=== PATIENT | female | born 1950 | race Caucasian/White ===

== ENCOUNTER 2023-01-04 17:39 | Emergency (ER) | payer MEDICARE, OTHER ==
[2023-01-04] MEDS ORDERED: METOCLOPRAMIDE 5 MG/ML 2 ML VIAL IVP STA (18:48)
[2023-01-04] MEDS ORDERED: SODIUM CHLORIDE 0.9% 1,000 ML IV STA (18:48)
[2023-01-04 19:10] LABS: Basophils % (A) 0 %; Eosinophils # (A) 0.1 k/uL (0-0.7); Eosinophils % (A) 0 %; HCT 50.4 % (34.0-46.0); HGB 17.4 gm/dL (11.4-16.0); Lymphocytes # (A) 2.9 k/uL (1.0-4.8); Lymphocytes % (A) 22 %; MCH 30.8 pg (25.0-35.0); MCHC 34.5 g/dL (31.0-37.0); MCV 89.4 fL (80.0-100.0); Mean Platelet Volume 7.9; Monocytes # (A) 0.8 k/uL (0-1.0); Monocytes % (A) 6 %; Neutrophils # (A) 9.4 k/uL (1.3-7.7); Neutrophils % (A) 71 %; Platelet Count 302 k/uL (150-450); RBC 5.64 m/uL (3.80-5.40); WBC 13.2 k/uL (3.8-10.6)
[2023-01-04 19:37] LABS: Appearance,Urine Clear (Clear); Bilirubin,Urine Negative (Negative); Blood,Urine Negative (Negative); Color,Urine Yellow; Glucose,Urine (UA) 4+ (Negative); Leukocyte Esterase,Urine Negative (Negative); Nitrite,Urine Negative (Negative); PH, Urine 5.5 (5.0-8.0); Protein,Urine Trace (Negative); Specific Gravity,Urine 1.027 (1.001-1.035); Urobilinogen,Urine <2.0 mg/dL (<2.0)
[2023-01-04 19:49] LABS: Ketones,Urine 4+ (Negative)
[2023-01-04 20:09] LABS: ALT 48 U/L (4-34); AST 55 U/L (14-36); African American GFR (CKD) 76 (>60 ml/min/1.73 sqM); Albumin 4.4 g/dL (3.5-5.0); Alkaline Phosphatase 110 U/L (38-126); Amylase 61 U/L (30-110); Anion Gap 26 mmol/L; Blood Urea Nitrogen 29 mg/dL (7-17); Calcium 9.8 mg/dL (8.4-10.2); Carbon Dioxide 12 mmol/L (22-30); Chloride 95 mmol/L (98-107); Glucose 216 mg/dL (74-99); Lipase 202 U/L (23-300); Non-African American GFR(CKD) 66 (>60 ml/min/1.73 sqM); Potassium 3.6 mmol/L (3.5-5.1); Sodium 133 mmol/L (137-145); Total Bilirubin 2.2 mg/dL (0.2-1.3); Total Protein 7.5 g/dL (6.3-8.2)
--- NOTE | 2023-01-04 22:06 | US ---
EXAMINATION TYPE: US abdomen limited DATE OF EXAM: 01/04/2023 COMPARISON: NONE CLINICAL INDICATION: Female, 72 years old with history of elevated bilirubin, vomiting; Elevated bili handy, vomiting, abdominal pain. Limited history. TECHNIQUE: Multiple sonographic images of the right upper quadrant are obtained. FINDINGS: EXAM MEASUREMENTS: Liver Length: 14.2 cm Gallbladder Wall: Obscured CBD: Obscured Right Kidney: 9.7 x 6.0 x 6.8 cm ABALONE FISHERMAN NOTES: Exam is extremely limited due to great amount of overlying bowel gas. Pancreas: Not well seen. Liver: Appears coarse with increased echogenicity. Limited. IVC was obscured. Gallbladder: Unable to visualize. Evidence for sonographic Mcdonald's sign: Yes CBD: Obscured Right Kidney: Hypoechoic area seen at the lower pole: 1.1 x 0.8 x 0.9 cm. IMPRESSION: 1. Per treatment counselor there is a positive sonographic Mcdonald's sign however the gallbladder is not visu alized. Correlate for history of cholecystectomy. Consider further evaluation with cross-sectional im aging with IV contrast. 2. Hepatic steatosis.
--- NOTE | 2023-01-04 23:16 | CT ---
EXAMINATION TYPE: CT abdomen pelvis w con DATE OF EXAM: 01/04/2023 HISTORY: Abdominal pain, acute, nonlocalized CT DLP: 947.2mGycm Automated Exposure Control for Dose Reduction was Utilized. CONTRAST: CT scan of the abdomen and pelvis is performed without oral and with IV Contrast, patient injected wi th 100 ml mL of Isovue 300. COMPARISON: Ultrasound abdomen earlier today. FINDINGS: LUNG BASES: Coronary artery calcification in the LAD distribution. LIVER/GB: Liver is heterogeneously hypodense consistent with diffuse fatty infiltration and/or underl chemo hepatocellular disease. Contracted gallbladder has internal air. No biliary dilatation. No surro unding fluid or fat stranding. PANCREAS: No significant abnormality is seen. SPLEEN: No significant abnormality is seen. ADRENALS: No significant abnormality is seen. KIDNEYS: Symmetric cortical medullary uptake and excretion without hydronephrosis seen bilaterally. BOWEL: Sigmoid colonic diverticula. No CT evidence for acute diverticulitis. No suspicious small or l arge bowel dilatation. Stomach poorly contracted and suboptimally evaluated. Severe wall thickening i n the antrum extending into the proximal duodenum. No free air. No well-formed fluid collection or ab scess seen. UTERUS/ADNEXA: Uterus surgically absent or markedly atrophic. LYMPH NODES: No greater than 1cm abdominal or pelvic lymph nodes are appreciated. OSSEOUS STRUCTURES: Facet arthropathy lower lumbar levels. Mild height loss involving T12 and L1 vert ebra presumed chronic. OTHER: No significant additional abnormality is seen. IMPRESSION: 1. Contracted gallbladder with pneumobilia. Correlate for recent instrumentation. No convincing CT ev idence for acute cholecystitis. No abnormal biliary dilatation. Possible focal inflammation involving the pylorus and proximal duodenum. Correlate for peptic ulcer disease/duodenitis. Consider follow-up endoscopy.
[2023-01-04] MEDS ORDERED: KETOROLAC 15 MG/ML 1 ML VIAL IVP STA (23:37)
[2023-01-05 00:04] VITALS: TEMP 98.2
[2023-01-05] MEDS ORDERED: PIPERACILLIN-TAZOBACTAM 3.375 GM in SODIUM CHLORIDE 0.9% 100 ML IVPB STA (01:01)
--- NOTE | 2023-01-05 01:09 | ED ---
Nausea/Vomiting/Diarrhea HPI - General Chief complaint: Nausea/Vomiting/Diarrhea Stated complaint: N/V/D, Dizziness Time Seen by Provider: 01/04/23 18:08 Source: patient, family Mode of arrival: wheelchair - History of Present Illness Initial comments: 72-year-old female with cognitive delay presenting with chief complaint of nausea and vomiting. Symptoms have been ongoing since . Patient was seen at a walk-in clinic and prescribed Zofran, she was also told to discontinue metformin at that time. Family states that she has not been complaining of abdominal pain. No fevers or chills. Patient did initially have diarrhea. Surgical history includes hysterectomy - Related Data Allergies Allergy/AdvReac Type Severity Reaction Status Date / Time No Known Allergies Allergy Verified 01/04/23 17:55 Review of Systems ROS Statement: Those systems with pertinent positive or pertinent negative responses have been documented in the HPI. ROS Other: All systems not noted in ROS Statement are negative. Past Medical History Past Medical History: Diabetes Mellitus, Hypertension Additional Past Medical History / Comment(s): cognitive delay History of Any Multi-Drug Resistant Organisms: None Reported Past Surgical History: Hysterectomy Past Psychological History: No Psychological Hx Reported Smoking Status: Never smoker Past Alcohol Use History: None Reported Past Drug Use History: None Reported General Exam Limitations: altered mental status General appearance: alert, in no apparent distress Head exam: Present: atraumatic, normocephalic, normal inspection Eye exam: Present: normal appearance, EOMI. Absent: scleral icterus, periorbital swelling Neck exam: Present: normal inspection, full ROM Respiratory exam: Present: normal lung sounds bilaterally. Absent: respiratory distress, wheezes, rales, rhonchi, stridor Cardiovascular Exam: Present: regular rate, normal rhythm, normal heart sounds. Absent: systolic murmur, diastolic murmur, rubs, gallop, clicks GI/Abdominal exam: Present: soft, tenderness, guarding. Absent: distended, rebound, rigid Neurological exam: Present: alert, altered (Baseline) Psychiatric exam: Present: normal affect, normal mood Skin exam: Present: warm, dry, intact, normal color. Absent: rash Course Vital Signs 01/04/23 01/04/23 01/04/23 17:47 18:08 19:07 Temperature 97.9 F 98.0 F Pulse Rate 98 98 Respiratory 18 18 17 Rate Blood Pressure 136/78 132/79 138/77 O2 Sat by Pulse 97 97 98 Oximetry 01/04/23 01/04/23 01/04/23 19:27 20:16 21:08 Temperature 98.7 F 98.7 F Pulse Rate 95 95 87 Respiratory 17 17 18 Rate Blood Pressure 138/77 126/72 120/69 O2 Sat by Pulse 95 92 L 94 L Oximetry 01/04/23 01/04/23 01/05/23 22:00 23:06 00:03 Temperature 98.0 F 98.2 F Pulse Rate 88 85 78 Respiratory 18 17 18 Rate Blood Pressure 113/69 128/67 112/62 O2 Sat by Pulse 93 L 95 94 L Oximetry 01/05/23 01:00 Temperature Pulse Rate 84 Respiratory 16 Rate Blood Pressure 126/76 O2 Sat by Pulse 95 Oximetry Medical Decision Making - Medical Decision Making Was pt. sent in by a medical professional or institution (, PA, VOCATIONAL EDUCATION TEACHER, urgent care, hospital, or prison...) When possible be specific @ -No Did you speak to anyone other than the patient for history (EMS, parent, family, police, friend...)? What history was obtained from this source @ -History obtained from the patient's brother and [id number] Did you review nursing and triage notes (agree or disagree)? Why? @ -I reviewed and agree with nursing and triage notes Were old charts reviewed (outside hosp., previous admission, EMS record, old EKG, old radiological studies, urgent care reports/EKG's, prison records)? Report findings @ -No old charts were reviewed Differential Diagnosis (chest pain, altered mental status, abdominal pain women, abdominal pain men, vaginal bleeding, weakness, fever, dyspnea, syncope, headache, dizziness, GI bleed, back pain, seizure, CVA, palpatations, mental health, musculoskeletal)? @ -MDM Differential Abdominal Pain Women: Appendicitis, Cholecystitis, diverticulosis, ischemic bowel, pancreatitis, hepat itis, UTI, gastroenteritis, AAA, incarcerated hernia, bowel obstruction, constipation, inflammatory bowel, hepatitis, peptic ulcer disease, splenic infarction, perforated viscus, vulvitis, ovarian torsion, PID, kidney stone, placenta abruption... This is not meant to be an all-inclusive list EKG interpreted by me (3pts min.). @ -As above X-rays interpreted by me (1pt min.). @ -None done CT interpreted by me (1pt min.). @ -CT shows contracted gallbladder with pneumobilia. No convincing CT evidence for acute cholecystitis. No abnormal biliary dilation. Possible focal inflammation involving the pylorus and proximal duodenum. Consider follow-up endoscopy U/S interpreted by me (1pt. min.). @ -Hepatic steatosis. Gallbladder not visualized What testing was considered but not performed or refused? (CT, X-rays, U/S, labs)? Why? @ -None What meds were considered but not given or refused? Why? @ -None Did you discuss the management of the patient with other professionals (professionals i.e. , PA, VOCATIONAL EDUCATION TEACHER, lab, RT, psych nurse, social media project manager, chocolate maker, teacher, staff weapons officer, case filler)? Give summary @ -I spoke with general surgeon stonecutter apprentice hand Dr. Suarez, she states that she would require GI on-call during this patient's stay in the event of a potential need for ERCP, recommending transfer for GI services I spoke with Dr. Tafoya from [facility] who accepted transfer Was smoking cessation discussed for >3mins.? @ -No Was critical care preformed (if so, how long)? @ -No Were there social determinants of health that impacted care today? How? (Homelessness, low income, unemployed, alcoholism, drug addiction, transp ortation, low edu. Level, literacy, decrease access to med. care, retirement, rehab)? @ -No Was there de-escalation of care discussed even if they declined (Discuss DNR or withdrawal of care, Hospice)? DNR status @ -No What co-morbidities impacted this encounter? (DM, HTN, Smoking, COPD, CAD, Cancer, CVA, ARF, Chemo, Hep., AIDS, mental health diagnosis, sleep apnea, morbid obesity)? @ -Diabetes, hypertension Was patient admitted / discharged? Hospital course, mention meds given and route , prescriptions, significant lab abnormalities, going to OR and other pertinent info. @ -72-year-old female presenting with chief complaint of nausea and vomiting ongoing since . On physical examination there is diffuse abdominal tenderness. Patient has WBC 13.2, CBC shows evidence of hemoconcentration. Anion gap 26. Carbon dioxide 12. Glucose 216. Bilirubin 2.2 AST 55 ALT 48. Urine shows 4+ glucose and 4+ ketones. CT shows evidence of pneumobilia. Spoke with general surgeon on-call who states that the patient may require ERCP and advises transfer for GI services. I spoke with Dr. Tafoya from [facility], accepted transfer. Patient family are agreeable with this plan. I discussed this case with my attending Dr. Martinez. Undiagnosed new problem with uncertain prognosis? @ -No Drug Therapy requiring intensive monitoring for toxicity (Heparin, Nitro, Insulin, Cardizem)? @ -No Were any procedures done? @ -No Diagnosis/symptom? @ -Pneumobilia Acute, or Chronic, or Acute on Chronic? @ -Acute Uncomplicated (without systemic symptoms) or Complicated (systemic symptoms)? @ -Complicated Side effects of treatment? @ -No Exacerbation, Progression, or Severe Exacerbation? @ -No Poses a threat to life or bodily function? How? (Chest pain, USA, NM, pneumonia, PE, COPD, DKA, ARF, appy, cholecystitis, CVA, Diverticulitis, Homicidal, Suicidal, threat to staff... and all critical care pts) @ -Potential - Lab Data Result diagrams: 01/04/23 18:59 01/04/23 19:37 Lab Results 01/04/23 01/04/23 01/04/23 Range/Units 18:59 18:59 19:37 WBC 13.2 H (3.8-10.6) k/uL RBC 5.64 H (3.80-5.40) m/uL Hgb 17.4 H (11.4-16.0) gm/dL Hct 50.4 H (34.0-46.0) % MCV 89.4 (80.0-100.0) fL MCH 30.8 (25.0-35.0) pg MCHC 34.5 (31.0-37.0) g/dL RDW 13.0 (11.5-15.5) % Plt Count 302 (150-450) k/uL MPV 7.9 Neutrophils % 71 % Lymphocytes % 22 % Monocytes % 6 % Eosinophils % 0 % Basophils % 0 % Neutrophils # 9.4 H (1.3-7.7) k/uL Lymphocytes # 2.9 (1.0-4.8) k/uL Monocytes # 0.8 (0-1.0) k/uL Eosinophils # 0.1 (0-0.7) k/uL Basophils # 0.0 (0-0.2) k/uL Sodium 133 L (137-145) mmol/L Potassium 3.6 (3.5-5.1) mmol/L Chloride 95 L (98-107) mmol/L Carbon Dioxide 12 L (22-30) mmol/L Anion Gap 26 mmol/L BUN 29 H (7-17) mg/dL Creatinine 0.87 (0.52-1.04) mg/dL Est GFR (CKD-EPI)AfAm 76 (>60 ml/min/1.73 sqM) Est GFR (CKD-EPI)NonAf 66 (>60 ml/min/1.73 sqM) Glucose 216 H (74-99) mg/dL Calcium 9.8 (8.4-10.2) mg/dL Total Bilirubin 2.2 H (0.2-1.3) mg/dL AST 55 H (14-36) U/L ALT 48 H (4-34) U/L Alkaline Phosphatase 110 (38-126) U/L Total Protein 7.5 (6.3-8.2) g/dL Albumin 4.4 (3.5-5.0) g/dL Amylase 61 (30-110) U/L Lipase 202 (23-300) U/L Urine Color Yellow Urine Appearance Clear (Clear) Urine pH 5.5 (5.0-8.0) Ur Specific [place] 1.027 (1.001-1.035) Urine Protein Trace H (Negative) Urine Glucose (UA) 4+ H (Negative) Urine Ketones 4+ H (Negative) Urine Blood Negative (Negative) Urine Nitrite Negative (Negative) Urine Bilirubin Negative (Negative) Urine Urobilinogen <2.0 (<2.0) mg/dL Ur Leukocyte Esterase Negative (Negative) Disposition Clinical Impression: Pneumobilia Disposition: OTHER INSTITUTION NOT DEFINED Condition: Fair Referrals: Isak Narvaez MD [Primary Care Provider] - 1-2 days Time of Disposition: 01:09 - Out of Hospital Transfer - Req. Specs Out of Hospital Transfer - Requested Specifics: Other Emergency Center ([facility]
[2023-01-05 01:20] VITALS: BP 126/76; PULSE 84; RESP 16
== END 2023-01-05 01:39 | disposition other institution (70) ==
LOC: EC 17:39
DX: K83.8 Other specified diseases of biliary tract (principal); K76.0 Fatty (change of) liver, not elsewhere classified; E11.9 Type 2 diabetes mellitus without complications; I10 Essential (primary) hypertension
CPT/HCPCS: 36415; 80053; 82150; 83690; 85025; 81003; 76705; 74177; 99285; 96365; 96375 ×2; 96361; J2543; J2765; J1885; Q9967

== ENCOUNTER 2024-03-18 17:40 | Inpatient (IN) | payer MEDICARE, OTHER ==
[2024-03-18 18:35] LABS: Appearance,Urine Clear (Clear); Bilirubin,Urine 1+ (Negative); Blood,Urine Negative (Negative); Color,Urine Light Yellow; Glucose,Urine (UA) 4+ (Negative); Leukocyte Esterase,Urine Moderate (Negative); Mucus,Urine Rare /hpf; Nitrite,Urine Negative (Negative); Protein,Urine Trace (Negative); RBC,Urine 1 /hpf (0-5); Specific Gravity,Urine 1.027 (1.001-1.035); Squamous Epithelial Cell,Urine 1 /hpf (0-4); Urobilinogen,Urine <2.0 mg/dL (<2.0); WBC,Urine 35 /hpf (0-5)
[2024-03-18 18:37] LABS: Ketones,Urine 3+ (Negative)
--- NOTE | 2024-03-18 19:43 | ED ---
Nausea/Vomiting/Diarrhea HPI - General Source: patient, RN notes reviewed Mode of arrival: ambulatory Limitations: no limitations - History of Present Illness MD complaint: nausea, vomiting <Harriet Thomas - Last Filed: 03/18/24 19:41> - General Source: RN notes reviewed, old records reviewed Mode of arrival: ambulatory - History of Present Illness MD complaint: nausea, vomiting, diarrhea, abdominal pain -: days(s) Description of Vomiting: watery Associated Abdominal Pain: No Location: diffuse Severity: mild Consistency: constant Improves with: none Worsens with: none Context: other (0) Associated Symptoms: loss of appetite, malaise, nausea/vomiting, weakness <Hardeep Olivas - Last Filed: 04/06/24 14:11> - General Chief complaint: Nausea/Vomiting/Diarrhea Stated complaint: vomiting Time Seen by Provider: 03/18/24 19:35 - History of Present Illness Initial comments: Quick Note: This is a 73-year-old female who presents to the emergency department for nausea and vomiting. Symptoms started about 3 days ago. Denies any abdominal pain, diarrhea, or constipation. She has also not had any fevers or chills. Family is concerned that she has been unable to take her medications. (Harriet Thomas) This is a 73-year-old presenting for nausea vomiting significant nausea vomiting history of type I diabetic unable to take medications at home mental status has been diminishing (Hardeep Olivas) - Related Data Home Medications Medication Instructions Recorded Confirmed Atorvastatin [Lipitor] 20 mg PO DAILY 03/19/24 04/02/24 Insulin Glargine,Hum.rec.anlog 16 units SQ HS 03/19/24 04/02/24 [Lantus Solostar Pen] Oxybutynin ER [Ditropan XL] 10 mg PO DAILY 03/19/24 04/02/24 metFORMIN HCL 500 mg PO BID 03/19/24 04/02/24 Previous Rx's Medication Instructions Recorded Acetaminophen Tab [Tylenol] 650 mg PO Q6HR PRN tab 03/22/24 cefUROXime axetiL [Ceftin] 500 mg PO BID 3 Days #6 tab 04/04/24 Allergies Allergy/AdvReac Type Severity Reaction Status Date / Time No Known Allergies Allergy Verified 04/02/24 11:00 Review of Systems ROS Other: All systems not noted in ROS Statement are negative. <Harriet Thomas - Last Filed: 03/18/24 19:41> ROS Other: All systems not noted in ROS Statement are negative. <Hardeep Olivas - Last Filed: 04/06/24 14:11> ROS Statement: Those systems with pertinent positive or pertinent negative responses have been documented in the HPI. Past Medical History Past Medical History: Diabetes Mellitus, Hypertension Additional Past Medical History / Comment(s): cognitive delay History of Any Multi-Drug Resistant Organisms: None Reported Past Surgical History: Hysterectomy Past Psychological History: No Psychological Hx Reported Smoking Status: Never smoker Past Alcohol Use History: None Reported Past Drug Use History: None Reported <Harriet Thomas - Last Filed: 03/18/24 19:41> General Exam Limitations: no limitations <Harriet Thomas - Last Filed: 03/18/24 19:41> General appearance: alert, in no apparent distress Head exam: Present: atraumatic, normocephalic, normal inspection Eye exam: Present: normal appearance, PERRL, EOMI. Absent: scleral icterus, conjunctival injection, periorbital swelling ENT exam: Present: normal exam, mucous membranes moist Neck exam: Present: normal inspection. Absent: tenderness, meningismus, lymphadenopathy Respiratory exam: Present: normal lung sounds bilaterally. Absent: respiratory distress, wheezes, rales, rhonchi, stridor Cardiovascular Exam: Present: regular rate, normal rhythm, normal heart sounds. Absent: systolic murmur, diastolic murmur, rubs, gallop, clicks GI/Abdominal exam: Present: soft, normal bowel sounds. Absent: distended, tenderness, guarding, rebound, rigid Extremities exam: Present: normal inspection, full ROM, normal capillary refill. Absent: tenderness, pedal edema, joint swelling, calf tenderness Back exam: Present: normal inspection Neurological exam: Present: alert, oriented X3, CN II-XII intact Psychiatric exam: Present: normal affect, normal mood Skin exam: Present: warm, dry, intact, normal color. Absent: rash <Hardeep Olivas - Last Filed: 04/06/24 14:11> - General Exam Comments Initial Comments: Visual Physical Exam Vital signs reviewed General: Well-appearing, nontoxic, no acute distress. Head: Normocephalic, atraumatic Eyes: PERRLA, EOMI ENT: Airway patent Chest: Nonlabored breathing Skin: No visual rash, normal skin tone Neuro: Alert and oriented 3 Musculoskeletal: No gross abnormalities (Harriet Thomas) Course <Hardeep Olivas - Last Filed: 04/06/24 14:11> Vital Signs 03/18/24 03/19/24 03/19/24 17:50 01:51 06:20 Temperature 98.3 F Pulse Rate 92 81 77 Respiratory 18 18 17 Rate Blood Pressure 155/90 138/67 131/67 O2 Sat by Pulse 98 96 95 Oximetry 03/19/24 03/19/24 03/19/24 07:42 10:46 13:56 Temperature Pulse Rate 80 84 72 Respiratory 18 18 16 Rate Blood Pressure 135/59 126/76 126/73 O2 Sat by Pulse 97 98 95 Oximetry 03/19/24 03/19/24 03/19/24 15:51 18:00 19:46 Temperature 97.7 F 97.8 F Pulse Rate 66 71 68 Respiratory 16 18 16 Rate Blood Pressure 137/70 127/72 129/71 O2 Sat by Pulse 99 97 91 L Oximetry 03/19/24 03/19/24 20:55 22:22 Temperature Pulse Rate 59 L 69 Respiratory 16 16 Rate Blood Pressure 114/70 115/61 O2 Sat by Pulse 98 97 Oximetry - Reevaluation(s) Reevaluation #1: 03/18/24 22:48 Medical records reviewed (Hardeep Olivas) Reevaluation #2: 03/18/24 22:48 Patient symptoms unchanged (Hardeep Olivas) Reevaluation #3: 03/18/24 22:49 Patient informed of results questions answered (Hardeep Olivas) Reevaluation #4: Was pt. sent in by a medical professional or institution (, PA, VARITYPE OPERATOR, urgent care, hospital, or jail...) When possible be specific @ -no Did you speak to anyone other than the patient for history (EMS, parent, family, police, friend...)? What history was obtained from this source @ -no Did you review nursing and triage notes (agree or disagree)? Why? @ -agree Are old charts reviewed (outside hosp., previous admission, EMS record, old EKG, old radiological studies, urgent care reports/EKG's, jail records)? Report findings @ -yes Differential Diagnosis (chest pain, altered mental status, abdominal pain women, abdominal pain men, vaginal bleeding, weakness, fever, dyspnea, syncope, headache, dizziness, GI bleed, back pain, seizure, CVA, palpatations, mental health, musculoskeletal)? @ -prior EKG interpreted by me (3pts min.). @ -yes X-rays interpreted by me (1pt min.). @ -no CT interpreted by me (1pt min.). @ -yes negative for acute disease U/S interpreted by me (1pt. min.). @ -no What testing was considered but not performed or refused? (CT, X-rays, U/S, labs)? Why? @ -none What meds were considered but not given or refused? Why? @ -none Did you discuss the management of the patient with other professionals (professionals i.e. , PA, VARITYPE OPERATOR, lab, RT, psych nurse, high school social studies teacher, monotype mechanic, teacher, adult probation officer, case managers)? Give summary @ -no Was smoking cessation discussed for >3mins.? @ -no Was critical care preformed (if so, how long)? @ -yes31 Were there social determinants of health that impacted care today? How? (Homelessness, low income, unemployed, alcoholism, drug addiction, transportation, low edu. Level, literacy, decrease access to med. care, senior care, rehab)? @ -none Was there de-escalation of care discussed even if they declined (Discuss DNR or withdrawal of care, Hospice)? DNR status @ -no What co-morbidities impacted this encounter? (DM, HTN, Smoking, COPD, CAD, Cancer, CVA, ARF, Chemo, Hep., AIDS, mental health diagnosis, sleep apnea, morbid obesity)? @ -none Was patient admitted / discharged? Hospital course, mention meds given and route, prescriptions, significant lab abnormalities, going to OR and other pertinent info. @ - 73 female with euglycemic DKA. Patient has significant nausea vomiting diarrhea here in the emergency department today and will admit for IV resuscitation fluid resuscitation and supportive care Admit Undiagnosed new problem with uncertain prognosis? @ -no Drug Therapy requiring intensive monitoring for toxicity (Heparin, Nitro, Insulin, Cardizem)? @ -no Were any procedures done? @ -no Diagnosis/symptom? @ -Euglycemic DKA Acute, or Chronic, or Acute on Chronic? @ -Acute Uncomplicated (without systemic symptoms) or Complicated (systemic symptoms)? @ -Complicated Side effects of treatment? @ -no Exacerbation, Progression, or Severe Exacerbation? @ -exacerbation Poses a threat to life or bodily function? How? (Chest pain, USA, RI, pneumonia, PE, COPD, DKA, ARF, appy, cholecystitis, CVA, Diverticulitis, Homicidal, Suicidal, threat to staff... and all critical care pts) @ -yes significant acidosis (Hardeep Olivas) Reevaluation #5: Differential Weakness: Hypoglycemia, shock, sepsis, hyponatremia, anemia, infection, RI, ETOH, adverse medicine reaction, overdose, stroke, this is not meant to be an all-inclusive list. (Hardeep Olivas) - Consultations Consultation #1: Spoke with admitting physicians who agreed to admit this patient (Hardeep Olivas) Medical Decision Making <Harriet Thomas - Last Filed: 03/18/24 19:41> - Lab Data Result diagrams: 03/22/24 09:02 03/22/24 09:02 - Radiology Data Radiology results: report reviewed (CT abdomen pelvis is negative for acute disease), image reviewed <Hardeep Olivas - Last Filed: 04/06/24 14:11> - Medical Decision Making I performed the QuickNote portion of this chart. Signed Harriet Thomas PA-C. (Harriet Thomas) 73 female with euglycemic DKA. Patient has significant nausea vomiting diarrhea here in the emergency department today and will admit for IV resuscitation fluid resuscitation and supportive care (Hardeep Olivas) - Lab Data Lab Results 03/18/24 03/18/24 03/18/24 Range/Units 18:01 18:08 19:36 WBC 11.3 H (3.8-10.6) k/uL RBC 5.69 H (3.80-5.40) m/uL Hgb 17.5 H (11.4-16.0) gm/dL Hct 51.4 H (34.0-46.0) % MCV 90.5 (80.0-100.0) fL MCH 30.8 (25.0-35.0) pg MCHC 34.1 (31.0-37.0) g/dL RDW 12.3 (11.5-15.5) % Plt Count 299 (150-450) k/uL MPV 7.1 Neutrophils % 77 % Lymphocytes % 18 % Monocytes % 4 % Eosinophils % 1 % Basophils % 0 % Neutrophils # 8.7 H (1.3-7.7) k/uL Lymphocytes # 2.0 (1.0-4.8) k/uL Monocytes # 0.4 (0-1.0) k/uL Eosinophils # 0.1 (0-0.7) k/uL Basophils # 0.0 (0-0.2) k/uL Sodium (137-145) mmol/L Potassium (3.5-5.1) mmol/L Chloride (98-107) mmol/L Carbon Dioxide (22-30) mmol/L Anion Gap mmol/L BUN (7-17) mg/dL Creatinine (0.52-1.04) mg/dL Est GFR (CKD-EPI)AfAm (>60 ml/min/1.73 sqM) Est GFR (CKD-EPI)NonAf (>60 ml/min/1.73 sqM) Glucose (74-99) mg/dL Calcium (8.4-10.2) mg/dL Total Bilirubin (0.2-1.3) mg/dL AST (14-36) U/L ALT (4-34) U/L Alkaline Phosphatase (38-126) U/L Total Protein (6.3-8.2) g/dL Albumin (3.5-5.0) g/dL Amylase (30-110) U/L Lipase (23-300) U/L Urine Color Light Yellow Urine Appearance Clear (Clear) Urine pH 6.0 (5.0-8.0) Ur Specific [place] 1.027 (1.001-1.035) Urine Protein Trace H (Negative) Urine Glucose (UA) 4+ H (Negative) Urine Ketones 3+ H (Negative) Urine Blood Negative (Negative) Urine Nitrite Negative (Negative) Urine Bilirubin 1+ H (Negative) Urine Urobilinogen <2.0 (<2.0) mg/dL Ur Leukocyte Esterase Moderate H (Negative) Urine RBC 1 (0-5) /hpf Urine WBC 35 H (0-5) /hpf Ur Squamous Epith Cells 1 (0-4) /hpf Urine Mucus Rare H (None) /hpf Influenza Type A (PCR) Not Detected (Not Detectd) Influenza Type B (PCR) Not Detected (Not Detectd) RSV (PCR) Not Detected (Not Detectd) SARS-CoV-2 (PCR) Not Detected (Not Detectd) 03/18/24 Range/Units 19:36 WBC (3.8-10.6) k/uL RBC (3.80-5.40) m/uL Hgb (11.4-16.0) gm/dL Hct (34.0-46.0) % MCV (80.0-100.0) fL MCH (25.0-35.0) pg MCHC (31.0-37.0) g/dL RDW (11.5-15.5) % Plt Count (150-450) k/uL MPV Neutrophils % % Lymphocytes % % Monocytes % % Eosinophils % % Basophils % % Neutrophils # (1.3-7.7) k/uL Lymphocytes # (1.0-4.8) k/uL Monocytes # (0-1.0) k/uL Eosinophils # (0-0.7) k/uL Basophils # (0-0.2) k/uL Sodium 135 L (137-145) mmol/L Potassium 3.7 (3.5-5.1) mmol/L Chloride 98 (98-107) mmol/L Carbon Dioxide 14 L (22-30) mmol/L Anion Gap 23 mmol/L BUN 35 H (7-17) mg/dL Creatinine 0.96 (0.52-1.04) mg/dL Est GFR (CKD-EPI)AfAm 67 (>60 ml/min/1.73 sqM) Est GFR (CKD-EPI)NonAf 58 (>60 ml/min/1.73 sqM) Glucose 169 H (74-99) mg/dL Calcium 10.5 H (8.4-10.2) mg/dL Total Bilirubin 1.5 H (0.2-1.3) mg/dL AST 23 (14-36) U/L ALT 18 (4-34) U/L Alkaline Phosphatase 77 (38-126) U/L Total Protein 7.7 (6.3-8.2) g/dL Albumin 4.8 (3.5-5.0) g/dL Amylase 69 (30-110) U/L Lipase 165 (23-300) U/L Urine Color Urine Appearance (Clear) Urine pH (5.0-8.0) Ur Specific [place] (1.001-1.035) Urine Protein (Negative) Urine Glucose (UA) (Negative) Urine Ketones (Negative) Urine Blood (Negative) Urine Nitrite (Negative) Urine Bilirubin (Negative) Urine Urobilinogen (<2.0) mg/dL Ur Leukocyte Esterase (Negative) Urine RBC (0-5) /hpf Urine WBC (0-5) /hpf Ur Squamous Epith Cells (0-4) /hpf Urine Mucus (None) /hpf Influenza Type A (PCR) (Not Detectd) Influenza Type B (PCR) (Not Detectd) RSV (PCR) (Not Detectd) SARS-CoV-2 (PCR) (Not Detectd) Critical Care Time Critical Care Time: Yes Total Critical Care Time: 31 <Hardeep Olivas - Last Filed: 04/06/24 14:11> Disposition <Harriet Thomas - Last Filed: 03/18/24 19:41> Is patient prescribed a controlled substance at d/c from ED?: No Time of Disposition: 22:40 <Hardeep Olivas - Last Filed: 04/06/24 14:11> Clinical Impression: Dehydration, Gastroenteritis, Nausea & vomiting, DKA (diabetic ketoacidosis) Disposition: ADMITTED IP TO THIS HOSP Condition: Good
[2024-03-18 20:25] LABS: Basophils % (A) 0 %; Eosinophils # (A) 0.1 k/uL (0-0.7); Eosinophils % (A) 1 %; HCT 51.4 % (34.0-46.0); HGB 17.5 gm/dL (11.4-16.0); Lymphocytes % (A) 18 %; MCH 30.8 pg (25.0-35.0); MCHC 34.1 g/dL (31.0-37.0); MCV 90.5 fL (80.0-100.0); Mean Platelet Volume 7.1; Monocytes # (A) 0.4 k/uL (0-1.0); Monocytes % (A) 4 %; Neutrophils # (A) 8.7 k/uL (1.3-7.7); Neutrophils % (A) 77 %; Platelet Count 299 k/uL (150-450); RBC 5.69 m/uL (3.80-5.40); RDW 12.3 % (11.5-15.5); WBC 11.3 k/uL (3.8-10.6)
[2024-03-18 20:33] LABS: ALT 18 U/L (4-34); AST 23 U/L (14-36); African American GFR (CKD) 67 (>60 ml/min/1.73 sqM); Albumin 4.8 g/dL (3.5-5.0); Alkaline Phosphatase 77 U/L (38-126); Amylase 69 U/L (30-110); Anion Gap 23 mmol/L; Blood Urea Nitrogen 35 mg/dL (7-17); Calcium 10.5 mg/dL (8.4-10.2); Carbon Dioxide 14 mmol/L (22-30); Chloride 98 mmol/L (98-107); Glucose 169 mg/dL (74-99); Lipase 165 U/L (23-300); Non-African American GFR(CKD) 58 (>60 ml/min/1.73 sqM); Potassium 3.7 mmol/L (3.5-5.1); Sodium 135 mmol/L (137-145); Total Bilirubin 1.5 mg/dL (0.2-1.3); Total Protein 7.7 g/dL (6.3-8.2)
[2024-03-18] MEDS ORDERED: MORPHINE SULFATE 4 MG/ML SYRINGE IV PRN (22:46)
[2024-03-18] MEDS ORDERED: NALOXONE 0.4 MG/ML 1 ML VIAL IV PRN (22:46)
[2024-03-19] MEDS: SODIUM CHLORIDE 0.9% 2,000 ML IV STA (00:15)
[2024-03-19] MEDS: ONDANSETRON 4 MG/2 ML VIAL IVP PRN (01:56)
[2024-03-19] MEDS: SODIUM CHLORIDE 0.9% 1,000 ML IV SCH (02:51)
[2024-03-19 02:57] LABS: Glucose,Whole Blood 121 mg/dL (70-110)
[2024-03-19] MEDS: PANTOPRAZOLE 40 MG/10 ML VIAL IV SCH (08:10)
[2024-03-19 08:20] LABS: Basophils # (A) 0.3 k/uL (0-0.2); Basophils % (A) 2 %; Eosinophils # (A) 0.2 k/uL (0-0.7); Eosinophils % (A) 1 %; HCT 45.7 % (34.0-46.0); HGB 15.1 gm/dL (11.4-16.0); Lymphocytes # (A) 1.8 k/uL (1.0-4.8); Lymphocytes % (A) 15 %; MCH 30.1 pg (25.0-35.0); MCHC 33.1 g/dL (31.0-37.0); Mean Platelet Volume 7.1; Monocytes # (A) 0.6 k/uL (0-1.0); Monocytes % (A) 5 %; Neutrophils # (A) 8.9 k/uL (1.3-7.7); Neutrophils % (A) 75 %; Platelet Count 238 k/uL (150-450); RBC 5.03 m/uL (3.80-5.40); RDW 12.6 % (11.5-15.5); WBC 11.9 k/uL (3.8-10.6)
[2024-03-19 09:06] LABS: ALT 15 U/L (4-34); AST 22 U/L (14-36); African American GFR (CKD) >90 (>60 ml/min/1.73 sqM); Albumin 3.8 g/dL (3.5-5.0); Alkaline Phosphatase 63 U/L (38-126); Anion Gap 17 mmol/L; Blood Urea Nitrogen 28 mg/dL (7-17); Calcium 9.2 mg/dL (8.4-10.2); Carbon Dioxide 16 mmol/L (22-30); Chloride 106 mmol/L (98-107); Glucose 109 mg/dL (74-99); Magnesium 1.7 mg/dL (1.6-2.3); Non-African American GFR(CKD) 86 (>60 ml/min/1.73 sqM); Phosphorus 2.8 mg/dL (2.5-4.5); Potassium 3.5 mmol/L (3.5-5.1); Sodium 139 mmol/L (137-145); Total Bilirubin 1.1 mg/dL (0.2-1.3); Total Protein 6.2 g/dL (6.3-8.2)
[2024-03-19] MEDS ORDERED: IOPAMIDOL CONTRAST (ORAL USE) VIAL PO PRN (09:28)
--- NOTE | 2024-03-19 11:31 | CT ---
EXAMINATION TYPE: CT abdomen pelvis w con CT DLP: 1080.2 mGycm, Automated exposure control for dose reduction was used. DATE OF EXAM: 03/19/2024 11:22 AM COMPARISON: 01/04/2023 CLINICAL INDICATION: Female, 73 years old with history of abd pain; Abdominal pain, N/V. Pt attempted to complete oral contrast but threw up mid prep. TECHNIQUE: Axial CT abdomen pelvis w con;Sagittal and coronal reformats were created on a separate w orkstation. Contrast used:100 mL of Isovue 300 with IV Contrast, (none if empty) Oral contrast used: with Oral Contrast (none if empty) FINDINGS: LOWER CHEST: Circumferential thickening of the esophagus series 201 image 1 gonzáles up to 4 mm. The hea rt is mildly enlarged for size. Mild coronary artery cusp patient's. ABDOMEN LIVER: Unremarkable GALLBLADDER AND BILE DUCTS: Contracted with gas in the lumen. PANCREAS: Unremarkable. SPLEEN: Unremarkable. ADRENAL GLANDS: Unremarkable. KIDNEYS AND URETERS: No evidence of hydronephrosis or renal calculus. The ureters are unremarkable. Simple appearing bilateral renal cortical cysts. PELVIS BLADDER: Distended urinary bladder. REPRODUCTIVE: The uterus is surgically absent. ABDOMEN & PELVIS STOMACH AND BOWEL: Small hiatal hernia. No evidence of bowel obstruction. Scattered colonic diverticu la are present. Mild eccentric wall thickening of the splenic flexure on series 201 image 23 suspicio us. No adjacent lymphadenopathy. PERITONEUM/RETROPERITONEUM: No evidence of pneumoperitoneum or free fluid. VASCULATURE: No evidence of aortic aneurysm. MUSCULOSKELETAL: No acute osseous abnormalities, multilevel degeneration changes spine with compressi on deformities at the thoracolumbar junction. LYMPH NODES: No gross evidence for lymphadenopathy. SOFT TISSUE/ABDOMINAL WALL: Unremarkable IMPRESSION: 1. Small hiatal hernia. 2. Eccentric wall thickening of the colon at the splenic flexure series 201 image 23. Follow-up colo noscopy recommended to exclude malignancy. 3. Mild esophageal wall thickening correlate for esophagitis. 4. Distended urinary bladder consider voiding. 5. Cardiomegaly. 6. Mild coronary artery atherosclerosis. 7. Colonic diverticulosis. Contracted gallbladder with gas in the lumen correlate for history of sub total cholecystectomy.
--- NOTE | 2024-03-19 13:18 | P.HPIM ---
History of Present Illness H&P Date: 03/19/24 Chief Complaint: Abdominal pain 73-year-old woman with a history of hypertension, diabetes, hyperlipidemia presents for evaluation of abdominal pain, nausea, vomiting. Patient is an overall poor historian. From my understanding of this case based on chart review, and limited interview with patient, she has had several days of nausea vomiting and abdominal pain. Apparently her family brought her into the hospital due to concerns over being unable to take her medications. Patient presently reports abdominal pain, nausea. She denies fevers, chills. In the emergency room, patient was afebrile, 155/90, heart rate 92, 98% on room air. CBC is remarkable for mild leukocytosis to 11.3. Basic metabolic panel is remarkable for hyponatremia to 135, anion gap of 23, bicarb of 14, BUN of 35. Liver function test show mildly elevated total bilirubin of 1.5. Amylase was 69, lipase is 165. UA showed trace protein, 4+ glucose, 3+ ketones, 1+ bilirubin, moderate leukocyte esterase, 35 white blood cells. Influenza A, B, RSV, COVID were negative. Abdomen/pelvis CT showed eccentric wall thickening of the colon at the splenic flexure and mild esophageal wall thickening. All Systems reviewed and pertinent positives and negatives noted in HPI, all other symptoms are negative Gen: In NAD, non-toxic HEENT: normocephalic, atraumatic, hearing acuity is intant, mucous membranes moist CVS: perfusing all extremities well, no pitting edema, Respiratory: symmetric chest expansion, no accessory muscle use, GI: soft, diffusely tender to palpation, nondistended : +suprapubic tenderness, no CVA tenderness MSK/Derm: no rashes, cyanosis Neuro: CN II-XII intact, no motor weakness, Psych: cooperative, euthymic mood, judgment and insight is intact Labs and imaging as above Assessment/plan: Nausea, vomiting Abdominal pain High anion gap metabolic acidosis -IV fluids: Normal saline at 130 cc/h -Repeat basic metabolic panel tomorrow morning -Zofran as needed -Morphine as needed -Consideration of GI consult for colonoscopy given CT scan results Complicated urinary tract infection -Ceftriaxone 2 g daily -Follow-up urine culture Diabetes type 2 -Resume long-acting insulin -Sliding scale insulin Hypertension Hyperlipidemia -Home medications reviewed and reconciled Patient is full code Past Medical History Past Medical History: Diabetes Mellitus, Hypertension Additional Past Medical History / Comment(s): cognitive delay History of Any Multi-Drug Resistant Organisms: None Reported Past Surgical History: Hysterectomy Past Psychological History: No Psychological Hx Reported Smoking Status: Never smoker Past Alcohol Use History: None Reported Past Drug Use History: None Reported Medications and Allergies Home Medications Medication Instructions Recorded Confirmed Type Atorvastatin [Lipitor] 20 mg PO DAILY 03/19/24 03/19/24 History Dulaglutide [Trulicity] 1.5 mg SQ SA 03/19/24 03/19/24 History Empagliflozin [Jardiance] 10 mg PO DAILY 03/19/24 03/19/24 History Insulin Glargine,Hum.rec.anlog 16 units SQ HS 03/19/24 03/19/24 History [Lantus Solostar Pen] Oxybutynin ER [Ditropan XL] 10 mg PO DAILY 03/19/24 03/19/24 History metFORMIN HCL 500 mg PO BID 03/19/24 03/19/24 History Allergies Allergy/AdvReac Type Severity Reaction Status Date / Time No Known Allergies Allergy Verified 03/19/24 09:47 Physical Exam Osteopathic Statement: *. No significant issues noted on an osteopathic structural exam other than those noted in the History and Physical/Consult. Vitals: Vital Signs Temp Pulse Resp BP Pulse Ox 03/19/24 10:46 84 18 126/76 98 03/19/24 07:42 80 18 135/59 97 03/19/24 06:20 77 17 131/67 95 03/19/24 01:51 81 18 138/67 96 03/18/24 17:50 98.3 F 92 18 155/90 98 Intake and Output 03/18/24 03/19/24 03/19/24 22:59 06:59 14:59 Other: Weight 68.039 kg Results CBC & Chem 7: 03/19/24 07:59 03/19/24 07:59 Labs: Abnormal Lab Results - Last 24 Hours (Table) 03/18/24 03/18/24 03/18/24 Range/Units 18:08 19:36 19:36 WBC 11.3 H (3.8-10.6) k/uL RBC 5.69 H (3.80-5.40) m/uL Hgb 17.5 H (11.4-16.0) gm/dL Hct 51.4 H (34.0-46.0) % Neutrophils # 8.7 H (1.3-7.7) k/uL Basophils # (0-0.2) k/uL Sodium 135 L (137-145) mmol/L Carbon Dioxide 14 L (22-30) mmol/L BUN 35 H (7-17) mg/dL Glucose 169 H (74-99) mg/dL POC Glucose (mg/dL) (70-110) mg/dL Calcium 10.5 H (8.4-10.2) mg/dL Total Bilirubin 1.5 H (0.2-1.3) mg/dL Total Protein (6.3-8.2) g/dL Urine Protein Trace H (Negative) Urine Glucose (UA) 4+ H (Negative) Urine Ketones 3+ H (Negative) Urine Bilirubin 1+ H (Negative) Ur Leukocyte Esterase Moderate H (Negative) Urine WBC 35 H (0-5) /hpf Urine Mucus Rare H (None) /hpf 03/19/24 03/19/24 03/19/24 Range/Units 02:55 07:59 07:59 WBC 11.9 H (3.8-10.6) k/uL RBC (3.80-5.40) m/uL Hgb (11.4-16.0) gm/dL Hct (34.0-46.0) % Neutrophils # 8.9 H (1.3-7.7) k/uL Basophils # 0.3 H (0-0.2) k/uL Sodium (137-145) mmol/L Carbon Dioxide 16 L (22-30) mmol/L BUN 28 H (7-17) mg/dL Glucose 109 H (74-99) mg/dL POC Glucose (mg/dL) 121 H (70-110) mg/dL Calcium (8.4-10.2) mg/dL Total Bilirubin (0.2-1.3) mg/dL Total Protein 6.2 L (6.3-8.2) g/dL Urine Protein (Negative) Urine Glucose (UA) (Negative) Urine Ketones (Negative) Urine Bilirubin (Negative) Ur Leukocyte Esterase (Negative) Urine WBC (0-5) /hpf Urine Mucus (None) /hpf
[2024-03-19 17:21] LABS: Glucose,Whole Blood 80 mg/dL (70-110)
[2024-03-19 20:48] LABS: Glucose,Whole Blood 82 mg/dL (70-110)
[2024-03-19 22:00] LABS: Glucose,Whole Blood 120 mg/dL (70-110)
[2024-03-19] MEDS: INSULIN DETEMIR (LEVEMIR) 100 UNIT/ML SYR SQ SCH (22:19)
[2024-03-20 05:47] LABS: Glucose,Whole Blood 58 mg/dL (70-110)
[2024-03-20 06:23] LABS: Glucose,Whole Blood 80 mg/dL (70-110)
[2024-03-20] MEDS: ATORVASTATIN 20 MG TAB PO SCH (07:59)
[2024-03-20] MEDS: OXYBUTYNIN 10 MG TAB.ER.24 PO SCH (07:59)
--- NOTE | 2024-03-20 09:13 | P.PN ---
Subjective Progress Note Date: 03/20/24 No new complaints today. Pt reports nausea is improved, abd pain is absent. Able to tolerate diet. Gen: In NAD, non-toxic HEENT: normocephalic, atraumatic, hearing acuity is intant, mucous membranes moist CVS: perfusing all extremities well, no pitting edema, Respiratory: symmetric chest expansion, no accessory muscle use, GI: soft, diffusely tender to palpation, nondistended : +suprapubic tenderness, no CVA tenderness MSK/Derm: no rashes, cyanosis Neuro: CN II-XII intact, no motor weakness, Psych: cooperative, euthymic mood, judgment and insight is intact Hospital Course: 73-year-old woman with a history of hypertension, diabetes, hyperlipidemia presents for evaluation of abdominal pain, nausea, vomiting. In the emergency room, patient was afebrile, 155/90, heart rate 92, 98% on room air. CBC is remarkable for mild leukocytosis to 11.3. Basic metabolic panel is remarkable for hyponatremia to 135, anion gap of 23, bicarb of 14, BUN of 35. Liver function test show mildly elevated total bilirubin of 1.5. Amylase was 69, lipase is 165. UA showed trace protein, 4+ glucose, 3+ ketones, 1+ bilirubin, moderate leukocyte esterase, 35 white blood cells. Influenza A, B, RSV, COVID were negative. Abdomen/pelvis CT showed eccentric wall thickening of the colon at the splenic flexure and mild esophageal wall thickening. Assessment/plan: Nausea, vomiting Abdominal pain High anion gap metabolic acidosis -IV fluids: Normal saline at 130 cc/h -Repeat basic metabolic panel tomorrow morning -Zofran as needed -Morphine as needed -Consideration of GI consult for colonoscopy given CT scan results, in vs outpatient tbd Complicated urinary tract infection -Ceftriaxone 2 g daily -Follow-up urine culture Diabetes type 2 -Resume long-acting insulin -Sliding scale insulin Hypertension Hyperlipidemia -Home medications reviewed and reconciled Patient is full code Objective - Vital Signs Vital signs: Vital Signs Temp 98.3 F 03/20/24 07:35 Pulse 69 03/20/24 07:35 Resp 17 03/20/24 07:35 BP 104/62 03/20/24 07:35 Pulse Ox 98 03/20/24 07:35 FiO2 Intake & Output 03/19/24 03/20/24 03/20/24 18:59 06:59 18:59 Weight 69.9 kg Other: # Voids 2 - Labs CBC & Chem 7: 03/19/24 07:59 03/19/24 07:59 Labs: Abnormal Lab Results - Last 24 Hours (Table) 03/19/24 03/20/24 Range/Units 21:58 05:44 POC Glucose (mg/dL) 120 H 58 L (70-110) mg/dL
[2024-03-20 10:06] LABS: Blood Urea Nitrogen 11.7 mg/dL (9.0-27.0); Calcium 8.4 mg/dL (8.7-10.3); Carbon Dioxide 20.7 mmol/L (21.6-31.8); Chloride 106 mmol/L (96-109); Glucose 75 mg/dL (70-110); Magnesium 1.6 mg/dL (1.5-2.4); Sodium 139 mmol/L (135-145)
[2024-03-20 10:19] LABS: Basophils # (A) 0.06 X 10*3/uL (0.00-0.10); Basophils % (A) 0.7 %; Eosinophils % (A) 1.2 %; HCT 39.8 % (37.2-46.3); HGB 13.5 g/dL (12.0-15.0); Lymphocytes # (A) 3.01 X 10*3/uL (0.90-5.00); Lymphocytes % (A) 37.3 %; MCH 30.3 pg (27.0-32.0); MCHC 33.9 g/dL (32.0-37.0); MCV 89.4 FL (80.0-97.0); Mean Platelet Volume 9.7 FL (9.5-12.2); Monocytes # (A) 0.64 X 10*3/uL (0.20-1.00); Monocytes % (A) 7.9 %; NRBC Per 100 WBC 0 X 10*3/uL (0.00-0.01); Neutrophils # (A) 4.23 X 10*3/uL (1.80-7.70); Neutrophils % (A) 52.7 %; Platelet Count 181 X 10*3/uL (140-440); RBC 4.45 X 10*6/uL (4.10-5.20); RDW 12.6 % (11.5-14.5); WBC 8.06 X 10*3/uL (4.50-10.00)
[2024-03-20 11:40] LABS: Glucose,Whole Blood 99 mg/dL (70-110)
[2024-03-20] MEDS: POTASSIUM CHLORIDE ER 20 MEQ TAB.ER PO SCH (13:11)
[2024-03-20 16:58] LABS: Glucose,Whole Blood 126 mg/dL (70-110)
[2024-03-20 20:44] LABS: Glucose,Whole Blood 162 mg/dL (70-110)
[2024-03-21 05:47] LABS: Glucose,Whole Blood 66 mg/dL (70-110)
[2024-03-21 06:04] LABS: Glucose,Whole Blood 74 mg/dL (70-110)
[2024-03-21 09:13] LABS: Blood Urea Nitrogen 5.5 mg/dL (9.0-27.0); Carbon Dioxide 22.4 mmol/L (21.6-31.8); Chloride 111 mmol/L (96-109); Glucose 92 mg/dL (70-110); Magnesium 1.7 mg/dL (1.5-2.4); Potassium 2.9 mmol/L (3.5-5.5); Sodium 142 mmol/L (135-145)
[2024-03-21 09:46] LABS: Basophils # (A) 0.04 X 10*3/uL (0.00-0.10); Basophils % (A) 0.6 %; Eosinophils # (A) 0.17 X 10*3/uL (0.04-0.35); Eosinophils % (A) 2.4 %; HCT 35.6 % (37.2-46.3); HGB 12.6 g/dL (12.0-15.0); Lymphocytes # (A) 2.56 X 10*3/uL (0.90-5.00); Lymphocytes % (A) 36.8 %; MCH 31.3 pg (27.0-32.0); MCHC 35.4 g/dL (32.0-37.0); MCV 88.3 FL (80.0-97.0); Monocytes # (A) 0.54 X 10*3/uL (0.20-1.00); Monocytes % (A) 7.8 %; NRBC Per 100 WBC 0 X 10*3/uL (0.00-0.01); Neutrophils # (A) 3.63 X 10*3/uL (1.80-7.70); Neutrophils % (A) 52.1 %; Platelet Count 170 X 10*3/uL (140-440); RBC 4.03 X 10*6/uL (4.10-5.20); RDW 12.6 % (11.5-14.5); WBC 6.96 X 10*3/uL (4.50-10.00)
--- NOTE | 2024-03-21 10:34 | P.PN ---
Subjective Progress Note Date: 03/21/24 No new complaints today. Pt reports nausea is improved, abd pain is absent. Able to tolerate diet. Gen: In NAD, non-toxic HEENT: normocephalic, atraumatic, hearing acuity is intant, mucous membranes moist CVS: perfusing all extremities well, no pitting edema, Respiratory: symmetric chest expansion, no accessory muscle use, GI: soft, diffusely tender to palpation, nondistended : +suprapubic tenderness, no CVA tenderness MSK/Derm: no rashes, cyanosis Neuro: CN II-XII intact, no motor weakness, Psych: cooperative, euthymic mood, judgment and insight is intact Hospital Course: 73-year-old woman with a history of hypertension, diabetes, hyperlipidemia presents for evaluation of abdominal pain, nausea, vomiting. In the emergency room, patient was afebrile, 155/90, heart rate 92, 98% on room air. CBC is remarkable for mild leukocytosis to 11.3. Basic metabolic panel is remarkable for hyponatremia to 135, anion gap of 23, bicarb of 14, BUN of 35. Liver function test show mildly elevated total bilirubin of 1.5. Amylase was 69, lipase is 165. UA showed trace protein, 4+ glucose, 3+ ketones, 1+ bilirubin, moderate leukocyte esterase, 35 white blood cells. Influenza A, B, RSV, COVID were negative. Abdomen/pelvis CT showed eccentric wall thickening of the colon at the splenic flexure and mild esophageal wall thickening. Assessment/plan: Nausea, vomiting Abdominal pain High anion gap metabolic acidosis -IV fluids: Normal saline at 130 cc/h -Repeat basic metabolic panel tomorrow morning -Zofran as needed -Morphine as needed -Discussed with GI today, pending colonoscopy tomorrow AM Hypokalemia - replete and recheck Complicated urinary tract infection -Ceftriaxone 2 g daily -Follow-up urine culture Diabetes type 2 -Resume long-acting insulin -Sliding scale insulin Hypertension Hyperlipidemia -Home medications reviewed and reconciled Patient is full code Objective - Vital Signs Vital signs: Vital Signs Temp 98.3 F 03/21/24 07:09 Pulse 62 03/21/24 08:00 Resp 17 03/21/24 08:00 BP 113/52 03/21/24 07:09 Pulse Ox 96 03/21/24 07:09 FiO2 Intake & Output 03/20/24 03/21/24 03/21/24 18:59 06:59 18:59 Intake Total 1560 Balance 1560 Intake: Intake, IV Titration 1560 Amount Sodium Chloride 0.9% 1, 1560 000 ml @ 130 mls/hr IV . Q7H42M [facility] Rx#:[id number] Other: Voiding Method Toilet # Voids 2 3 - Labs CBC & Chem 7: 03/21/24 04:43 03/21/24 04:43 Labs: Abnormal Lab Results - Last 24 Hours (Table) 03/20/24 03/20/24 03/21/24 Range/Units 16:57 20:43 04:43 RBC 4.03 L (4.10-5.20) X 10*6/uL Hct 35.6 L (37.2-46.3) % Potassium (3.5-5.5) mmol/L Chloride (96-109) mmol/L BUN (9.0-27.0) mg/dL Creatinine (0.6-1.5) mg/dL BUN/Creatinine Ratio (12.00-20.00) Ratio POC Glucose (mg/dL) 126 H 162 H (70-110) mg/dL Calcium (8.7-10.3) mg/dL 03/21/24 03/21/24 Range/Units 04:43 05:46 RBC (4.10-5.20) X 10*6/uL Hct (37.2-46.3) % Potassium 2.9 L (3.5-5.5) mmol/L Chloride 111 H (96-109) mmol/L BUN 5.5 L (9.0-27.0) mg/dL Creatinine 0.5 L (0.6-1.5) mg/dL BUN/Creatinine Ratio 11.00 L (12.00-20.00) Ratio POC Glucose (mg/dL) 66 L (70-110) mg/dL Calcium 8.0 L (8.7-10.3) mg/dL
[2024-03-21 11:54] LABS: Glucose,Whole Blood 95 mg/dL (70-110)
[2024-03-21] MEDS: POTASSIUM CHLORIDE ER 20 MEQ TAB.ER PO SCH (12:49)
--- NOTE | 2024-03-21 14:49 | P.CONS ---
History of Present Illness - Reason for Consult Consult date: 03/21/24 Thickened colon by splenic flexure Requesting physician: Marah Rose - Chief Complaint Nausea vomiting and abdominal pain - History of Present Illness This is a pleasant 73-year-old female with past medical history including hypertension, diabetes, hyperlipidemia and cognitive delay who was brought into the emergency department by her family for further evaluation of complaints of abdominal pain, nausea and vomiting. Patient states that it had started the Thursday that she had come in. States she has several episodes of vomiting denied any blood in her emesis or coffee-ground emesis. Is associated with abdominal pain. Denied any diarrhea. Patient is alert and oriented to self and place stating she is in the hospital however she does not know which city or what year it is. Her brother Jam Cardona is her power of erisa attorney. She states he makes her medical decisions. She had a CT of the abdomen pelvis on admission with concerns of small hiatal hernia wall thickening of the colon at the splenic flexure with follow-up colonoscopy recommended to exclude malignancy mild esophageal wall thickening correlate for esophagitis therefore gastroenterology was consulted. Patient states abdominal pain improved, no further nausea or vomiting. Denies any blood in her stool or rectum. States she has not had any previous EGD or colonoscopy. Review of Systems REVIEW OF SYSTEMS: CARDIOPULMONARY: No chest pain or shortness of breath. Gastrointestinal: Abdominal pain resolved. Nausea and vomiting resolved. No hematemesis, coffee-ground emesis. No rectal bleeding, or melena. GENITOURINARY: No dysuria or hematuria. MUSCULOSKELETAL: Reports normal range of motion. SKIN: No rashes. No jaundice. ENDOCRINE: No chills, fevers. No excessive weight gain or loss. No polydipsia or polyuria. PSYCHIATRIC: Unremarkable. NEUROLOGY: No change in mental status. Denies dizziness, headache. Patient has cognitive delay. ENT: Vision unremarkable. CONSTITUTIONAL: No recent weight loss. No fever, chills, night sweats. Past Medical History Past Medical History: Diabetes Mellitus, Hypertension Additional Past Medical History / Comment(s): cognitive delay History of Any Multi-Drug Resistant Organisms: None Reported Past Surgical History: Hysterectomy Past Psychological History: No Psychological Hx Reported Smoking Status: Never smoker Past Alcohol Use History: None Reported Past Drug Use History: None Reported Medications and Allergies Home Medications Medication Instructions Recorded Confirmed Type Atorvastatin [Lipitor] 20 mg PO DAILY 03/19/24 03/19/24 History Dulaglutide [Trulicity] 1.5 mg SQ SA 03/19/24 03/19/24 History Empagliflozin [Jardiance] 10 mg PO DAILY 03/19/24 03/19/24 History Insulin Glargine,Hum.rec.anlog 16 units SQ HS 03/19/24 03/19/24 History [Lantus Solostar Pen] Oxybutynin ER [Ditropan XL] 10 mg PO DAILY 03/19/24 03/19/24 History metFORMIN HCL 500 mg PO BID 03/19/24 03/19/24 History Allergies Allergy/AdvReac Type Severity Reaction Status Date / Time No Known Allergies Allergy Verified 03/19/24 09:47 Physical Exam Vitals: Vital Signs Temp Pulse Resp BP Pulse Ox 03/21/24 07:09 98.3 F 62 17 113/52 96 03/21/24 02:00 99.5 F 55 L 107/55 95 03/20/24 19:56 97.3 F L 62 113/53 96 03/20/24 14:12 97.9 F 59 L 17 125/79 97 Intake and Output 03/20/24 03/21/24 03/21/24 22:59 06:59 14:59 Intake Total 1560 Balance 1560 Intake: Intake, IV Titration 1560 Amount Sodium Chloride 0.9% 1, 1560 000 ml @ 130 mls/hr IV . Q7H42M [facility] Rx#:[id number] Other: # Voids 3 General appearance: The patient is alert, oriented to person and partial place, appears in no acute distress. HET: Head is normocephalic and atraumatic. Conjunctiva pink. Sclera anicteric. Neck: Supple without lymphadenopathy. Trachea midline. Heart: Regular. Lungs: Equal expansion, normal respiratory effort. Abdomen: Soft, lower abdominal tenderness with palpation, nondistended. Skin: No rashes. No jaundice. Extremities: Normal skin color and turgor. No pedal edema. Neurological: Cognitive delay. Alert and oriented to self and knows she is at the hospital but does not know which city or year. Results CBC & Chem 7: 03/21/24 04:43 03/21/24 04:43 Labs: Abnormal Lab Results - Last 24 Hours (Table) 03/20/24 03/20/24 03/20/24 Range/Units 05:22 16:57 20:43 Potassium 3.0 L (3.5-5.5) mmol/L Chloride (96-109) mmol/L Carbon Dioxide 20.7 L (21.6-31.8) mmol/L Anion Gap 12.30 H (4.00-12.00) mmol/L BUN (9.0-27.0) mg/dL Creatinine (0.6-1.5) mg/dL BUN/Creatinine Ratio (12.00-20.00) Ratio POC Glucose (mg/dL) 126 H 162 H (70-110) mg/dL Calcium 8.4 L (8.7-10.3) mg/dL 03/21/24 03/21/24 Range/Units 04:43 05:46 Potassium 2.9 L (3.5-5.5) mmol/L Chloride 111 H (96-109) mmol/L Carbon Dioxide (21.6-31.8) mmol/L Anion Gap (4.00-12.00) mmol/L BUN 5.5 L (9.0-27.0) mg/dL Creatinine 0.5 L (0.6-1.5) mg/dL BUN/Creatinine Ratio 11.00 L (12.00-20.00) Ratio POC Glucose (mg/dL) 66 L (70-110) mg/dL Calcium 8.0 L (8.7-10.3) mg/dL Comments: CT abdomen pelvis with contrast reports small hiatal hernia. Eccentric wall thickening of the colon at the splenic flexure series 201 image 23. Follow-up colonoscopy recommended to exclude malignancy. Mild esophageal wall thickening correlate for esophagitis. Distended urinary bladder consider voiding. Cardiomegaly. Mild coronary artery arthrosclerosis. Colonic diverticulosis. Contracted gallbladder with gas in the lumen correlate for history of subtotal cholecystectomy. Assessment and Plan (1) Colon wall thickening Narrative/Plan: 73-year-old female who presented with 1 day of nausea vomiting and abdominal pain was brought into the emergency department and worked up having a CT of the abdomen pelvis concerning for eccentric wall thickening of the colon at the splenic flexure as well as mild esophageal wall thickening correlate for esophagitis. Symptoms have resolved she still does have tenderness in the lower abdomen. Gastroenterology consulted for further evaluation and possible endoscopy of wall thickening. Who is her power of erisa attorney and states that she had a colonoscopy about a year ago for evaluation for colon cancer at [facility]. He states he does not know any specifics and recommended that we talk to his Anu. Anu was not available left message was left. Consider postponing endoscopy until further discussed with Anu and will obtain report from [facility]. Current Visit: Yes Status: Acute Code(s): K63.9 - DISEASE OF INTESTINE, UNSPECIFIED SNOMED Code(s): 803995148 (2) Abdominal pain Current Visit: Yes Status: Acute Code(s): R10.9 - UNSPECIFIED ABDOMINAL PAIN SNOMED Code(s): 02441967 (3) Nausea & vomiting Current Visit: Yes Status: Acute Code(s): R11.2 - NAUSEA WITH VOMITING, UNSPECIFIED SNOMED Code(s): 01730950 (4) Hypokalemia Current Visit: Yes Status: Acute Code(s): E87.6 - HYPOKALEMIA SNOMED Code(s): 46982117 Plan: 1. Continue symptomatic and supportive care 2. Clear liquid diet 3. Place potassium per protocol 4. Repeat BMP in a.m. 5. Spoke with patient's brother states that patient had recent colonoscopy about a year ago at [facility]. Please request records 6. Further recommendations forthcoming on recommendations for endoscopy based on report. Can also consider outpatient endoscopy as needed. Thank you for this consultation, we will continue to follow. Dr. Mary Richards I agree with the dictator's note, documented as a scribe by Valentina Steve.
[2024-03-21 16:39] LABS: Glucose,Whole Blood 193 mg/dL (70-110)
--- NOTE | 2024-03-21 19:15 | EEG ---
ELECTROENCEPHALOGRAM REPORT CLINICAL HISTORY: This is a 73-year-old woman with reported altered mental status. The video EEG is obtained to evaluate for seizure epileptiform activity. RELEVANT MEDICATION: Morphine that is reported on the solar technician report. DESCRIPTION: Wakefulness is only obtained. During awake state, the background consists of low voltage of 7 hertz activity that seems poorly modulated, poorly sustained. There is no physiological stage 2 sleep architecture. There is no focal slowing. Interictal and ictal is none. ACTIVATION PROCEDURE: Photic stimulation and hyperventilation are not performed. CLINICAL INTERPRETATION: This is an abnormal routine EEG. The background slowing is suggestive of mild encephalopathy. There is no focal slowing, epileptiform discharge, or seizure on the EEG. Clinical correlation is recommended. MMODL / IJN: [id number] /
[2024-03-21] MEDS: ACETAMINOPHEN TAB 325 MG TAB PO PRN (20:48)
[2024-03-21 21:02] LABS: Glucose,Whole Blood 183 mg/dL (70-110)
[2024-03-21] MEDS: PEG 3350 (236 GM/BTL) + LYTES 4,000 ML BOTTLE PO ONE (23:04)
[2024-03-22 03:13] LABS: Glucose,Whole Blood 105 mg/dL (70-110)
[2024-03-22 05:44] LABS: Glucose,Whole Blood 110 mg/dL (70-110)
[2024-03-22 09:54] LABS: Basophils % (A) 1 %; Eosinophils # (A) 0.2 k/uL (0-0.7); Eosinophils % (A) 3 %; HCT 39.8 % (34.0-46.0); HGB 13.6 gm/dL (11.4-16.0); Lymphocytes # (A) 1.9 k/uL (1.0-4.8); Lymphocytes % (A) 33 %; MCH 31.1 pg (25.0-35.0); MCV 91.4 fL (80.0-100.0); Mean Platelet Volume 7.4; Monocytes # (A) 0.3 k/uL (0-1.0); Monocytes % (A) 5 %; Neutrophils # (A) 3.3 k/uL (1.3-7.7); Neutrophils % (A) 57 %; Platelet Count 183 k/uL (150-450); RBC 4.36 m/uL (3.80-5.40); RDW 12.6 % (11.5-15.5); WBC 5.8 k/uL (3.8-10.6)
[2024-03-22 10:09] LABS: ALT 18 U/L (4-34); AST 25 U/L (14-36); African American GFR (CKD) >90 (>60 ml/min/1.73 sqM); Albumin/Globulin Ratio 1.3; Alkaline Phosphatase 65 U/L (38-126); Anion Gap 9 mmol/L; Blood Urea Nitrogen 6 mg/dL (7-17); Calcium 8.6 mg/dL (8.4-10.2); Carbon Dioxide 23 mmol/L (22-30); Chloride 109 mmol/L (98-107); Globulin 2.4 g/dL; Glucose 91 mg/dL (74-99); Non-African American GFR(CKD) >90 (>60 ml/min/1.73 sqM); Potassium 3.5 mmol/L (3.5-5.1); Sodium 141 mmol/L (137-145); Total Bilirubin 1.1 mg/dL (0.2-1.3); Total Protein 5.4 g/dL (6.3-8.2)
[2024-03-22 11:05] LABS: Glucose,Whole Blood 75 mg/dL (70-110)
--- NOTE | 2024-03-22 13:48 | P.PN ---
Subjective Progress Note Date: 03/22/24 Principal diagnosis: Nausea, vomiting and abdominal pain This is a pleasant 73-year-old female with past medical history including hypertension, diabetes, hyperlipidemia and cognitive delay who was brought into the emergency department by her family for further evaluation of complaints of abdominal pain, nausea and vomiting. Patient states that it had started the Thursday that she had come in. States she has several episodes of vomiting denied any blood in her emesis or coffee-ground emesis. Is associated with abdominal pain. Denied any diarrhea. Patient is alert and oriented to self and place stating she is in the hospital however she does not know which city or what year it is. Her brother Jam Cardona is her power of real estate associate attorney. She states he makes her medical decisions. She had a CT of the abdomen pelvis on admission with concerns of small hiatal hernia wall thickening of the colon at the splenic flexure with follow-up colonoscopy recommended to exclude malignancy mild esophageal wall thickening correlate for esophagitis therefore gastroenterology was consulted. Patient states abdominal pain improved, no further nausea or vomiting. Denies any blood in her stool or rectum. States she has not had any previous EGD or colonoscopy. 02/18/2029 1024 Patient seen and examined today as a follow-up. Lengthy discussion had with her brother Jam who is her power of real estate associate attorney and his Cristina. Patient reportedly had recent upper and lower endoscopy done at [facility] within the last few months to a year. She states they were ruling out cancer but cannot give me any specifics. States that they were normal. Patient is eating regular food and tolerating well. Reports from [facility] have been requested several times by fax unfortunately no reports have been received as of yet. Objective - Vital Signs Vital signs: Vital Signs Temp 97.7 F 03/22/24 07:52 Pulse 61 03/22/24 07:52 Resp 16 03/22/24 07:52 BP 146/78 03/22/24 07:52 Pulse Ox 97 03/22/24 07:52 FiO2 Intake & Output 03/21/24 03/22/24 03/22/24 18:59 06:59 18:59 Weight 72.7 kg Other: Voiding Method Toilet Toilet # Voids 2 5 - Exam General appearance: The patient is alert, oriented, appears in no acute distress. HET: Head is normocephalic and atraumatic. Conjunctiva pink. Sclera anicteric. Neck: Supple without lymphadenopathy. Abdomen: Soft, right mid to lower quadrant tenderness, nondistended with bowel sounds. No guarding or rigidity. Extremities: Normal skin color and turgor. No pedal edema Skin: No rashes, no jaundice Neurological: No focal deficits. Alert and oriented. - Labs CBC & Chem 7: 03/22/24 09:02 03/22/24 09:02 Labs: Abnormal Lab Results - Last 24 Hours (Table) 03/21/24 03/21/24 03/21/24 Range/Units 04:43 16:38 21:00 RBC 4.03 L (4.10-5.20) X 10*6/uL Hct 35.6 L (37.2-46.3) % POC Glucose (mg/dL) 193 H 183 H (70-110) mg/dL Assessment and Plan (1) Colon wall thickening Narrative/Plan: 73-year-old female who presented with 1 day of nausea vomiting and abdominal pain was brought into the emergency department and worked up having a CT of the abdomen pelvis concerning for eccentric wall thickening of the colon at the splenic flexure as well as mild esophageal wall thickening correlate for esophagitis. Symptoms have resolved she still does have tenderness in the lower abdomen. Gastroenterology consulted for further evaluation and possible endoscopy of wall thickening. Who is her power of real estate associate attorney and states that she had a colonoscopy about a year ago for evaluation for colon cancer at [facility]. He states he does not know any specifics and recommended that we talk to his Anu. Anu was not available left message was left. Consider postponing endoscopy until further discussed with Anu and will obtain report from [facility]. Current Visit: Yes Status: Acute Code(s): K63.9 - DISEASE OF INTESTINE, UNSPECIFIED SNOMED Code(s): 980256316 (2) Abdominal pain Current Visit: Yes Status: Acute Code(s): R10.9 - UNSPECIFIED ABDOMINAL PAIN SNOMED Code(s): 21825589 (3) Nausea & vomiting Narrative/Plan: Improved Current Visit: Yes Status: Acute Code(s): R11.2 - NAUSEA WITH VOMITING, UNSPECIFIED SNOMED Code(s): 65542204 (4) Hypokalemia Current Visit: Yes Status: Acute Code(s): E87.6 - HYPOKALEMIA SNOMED Code(s): 63191796 Plan: 1. Continue symptomatic and supportive care 2. May have consistent carbohydrate diet 3. Spoke with patient's brother states that patient had recent colonoscopy about a year ago at [facility]. Records requested unfortunately not available at this time 4. If no further nausea or vomiting can follow-up as an outpatient and have the family get records from [facility] to review at that time Thank you for this consultation, we will continue to follow. Dr. Mary Richards I agree with the dictator's note, documented as a scribe by Valentina Steve.
[2024-03-22 16:20] LABS: Glucose,Whole Blood 153 mg/dL (70-110)
--- NOTE | 2024-03-22 16:32 | P.DS ---
Providers Date of admission: 03/18/24 22:46 Expected date of discharge: 03/22/24 Attending physician: Joellen Vela MD Consults: 03/21/24 10:32 Consult Physician Routine Consulting Provider: Zaira Richards Consult Reason/Comments: thickened colon by splenic flexture Do you want consulting provider notified?: Yes Primary care physician: Isak Narvaez Hospital Course: Nausea, vomiting Abdominal pain High anion gap metabolic acidosis Hypokalemia Complicated urinary tract infection Diabetes type 2 Hypertension Hyperlipidemia Gen: In NAD, non-toxic HEENT: normocephalic, atraumatic, hearing acuity is intant, mucous membranes moist CVS: perfusing all extremities well, no pitting edema, Respiratory: symmetric chest expansion, no accessory muscle use, GI: soft, diffusely tender to palpation, nondistended : +suprapubic tenderness, no CVA tenderness MSK/Derm: no rashes, cyanosis Neuro: CN II-XII intact, no motor weakness, Psych: cooperative, euthymic mood, judgment and insight is intact Hospital Course: 73-year-old woman with a history of hypertension, diabetes, hyperlipidemia presents for evaluation of abdominal pain, nausea, vomiting. In the emergency room, patient was afebrile, 155/90, heart rate 92, 98% on room air. CBC is remarkable for mild leukocytosis to 11.3. Basic metabolic panel is remarkable for hyponatremia to 135, anion gap of 23, bicarb of 14, BUN of 35. Liver function test show mildly elevated total bilirubin of 1.5. Amylase was 69, lipase is 165. UA showed trace protein, 4+ glucose, 3+ ketones, 1+ bilirubin, moderate leukocyte esterase, 35 white blood cells. Influenza A, B, RSV, COVID were negative. Abdomen/pelvis CT showed eccentric wall thickening of the colon at the splenic flexure and mild esophageal wall thickening. Patient was admitted and treated with IV fluids, Zofran as needed, morphine as needed. She underwent CT abdomen/pelvis which did demonstrate findings of thickened colon at the splenic flexure. GI was consulted for this and discovered that patient had already gotten workup for this at [facility] last year. Therefore, patient was found to be amenable for discharge after resolution of her symptoms and was prompted to follow-up with GI as an outpatient. She otherwise should follow-up with her primary care physician as well. She was also incidentally found to have a urinary tract infection and was treated with ceftriaxone, will complete her course of 5 days with cefdinir I spent 34 minutes coordinating this discharge Patient Condition at Discharge: Good Plan - Discharge Summary Discharge Rx Participant: No New Discharge Prescriptions: New Cefdinir [Omnicef] 300 mg PO Q12HR 2 Days #4 capsule Acetaminophen Tab [Tylenol] 650 mg PO Q6HR PRN tab PRN Reason: Fever And/ Or Pain Continue Empagliflozin [Jardiance] 10 mg PO DAILY Dulaglutide [Trulicity] 1.5 mg SQ SA Atorvastatin [Lipitor] 20 mg PO DAILY Oxybutynin ER [Ditropan XL] 10 mg PO DAILY Insulin Glargine,Hum.rec.anlog [Lantus Solostar Pen] 16 units SQ HS metFORMIN HCL 500 mg PO BID Discharge Medication List Atorvastatin [Lipitor] 20 mg PO DAILY 03/19/24 [History] Dulaglutide [Trulicity] 1.5 mg SQ SA 03/19/24 [History] Empagliflozin [Jardiance] 10 mg PO DAILY 03/19/24 [History] Insulin Glargine,Hum.rec.anlog [Lantus Solostar Pen] 16 units SQ HS 03/19/24 [History] Oxybutynin ER [Ditropan XL] 10 mg PO DAILY 03/19/24 [History] metFORMIN HCL 500 mg PO BID 03/19/24 [History] Acetaminophen Tab [Tylenol] 650 mg PO Q6HR PRN tab 03/22/24 [Rx] Cefdinir [Omnicef] 300 mg PO Q12HR 2 Days #4 capsule 03/22/24 [Rx] Follow up Appointment(s)/Referral(s): Isak Narvaez MD [Primary Care Provider] - 1-2 days Discharge Disposition: HOME SELF-CARE
[2024-03-22 20:17] LABS: Glucose,Whole Blood 109 mg/dL (70-110)
[2024-03-22 20:23] VITALS: BP 153/66; PULSE 66; RESP 17; TEMP 97.2
--- NOTE | 2024-04-09 21:05 | CDI ---
Documentation Clarification Form Date: 04/09/2024 08:55:05 PM From: Phylicia Palomares Phone: Admit Date: 03/18/2024 10:46:00 PM Patient Name: Radha Solano Visit Number: [id number] Discharge Date: 03/22/2024 09:12:00 PM ATTENTION: The Clinical Documentation Specialists (CDI) and [facility] Coding Staff appreciate your assistance in clarifying documentation. Please respond to the clarification below the line at the bottom and electronically sign. The CDI & [facility] Coding staff will review the response and follow-up if needed. Please note: Queries are made part of the Legal Health Record. If you have any questions, please contact the author of this message via ITS. Doctor/Provider: Marah Rose Your patient is receiving the following: Sliding scale insulin. Please clarify what condition/diagnosis is being treated. History/Risk Factors: 73yo F, UTI, HAGMA, hypokalemia, IDDMII, HTN, HLD, hyponatremia, Insulin Glargine,Hum.rec.anlog 16 units [Lantus Solostar Pen], metformin HCL 500 mg PO BID Clinical indicators: Glucose: 03/18 169 9 109- 169 03/20 58- 120 03/21 66-162 03/22 183-193 Treatment: Resume long-acting insulin; Sliding scale insulin What diagnosis are you treating with sliding scale insulin? [ x] Diabetes type 2 with hyperglycemia [ ] Diabetes type 2 no complications [ ] No additional diagnosis [ ] Other, please specify [ ] Unable to determine (Template Last Reviewed: August 2020) MTDD
== END 2024-03-22 21:12 | disposition home or self-care (01) | DRG 690 ==
LOC: EC 17:40 → 3SCARD 22:46 → 5NMEDONC 03-19 17:38 → 4SSUR 03-19 19:41
PROVIDERS: ADMIT Internal Medicine; ATTEND Internal Medicine
DX: N39.0 Urinary tract infection, site not specified (principal); E87.1 Hypo-osmolality and hyponatremia; E87.20 Acidosis, unspecified; E11.65 Type 2 diabetes mellitus with hyperglycemia; Z79.4 Long term (current) use of insulin; I10 Essential (primary) hypertension; E87.6 Hypokalemia; K22.89 Other specified disease of esophagus; E78.5 Hyperlipidemia, unspecified; Z79.84 Long term (current) use of oral hypoglycemic drugs; Z79.899 Other long term (current) drug therapy; K63.89 Other specified diseases of intestine
CPT/HCPCS: 36415; 74177; 80048; 80053; 81001; 82150; 83690; 83735; 84100; 85025; 87636; 95816; 99291

== ENCOUNTER 2024-04-01 19:50 | Inpatient (IN) | payer MEDICARE, OTHER ==
[2024-04-01 20:08] LABS: Glucose,Whole Blood 71 mg/dL (70-110)
--- NOTE | 2024-04-01 20:57 | ED ---
Recheck HPI - General Chief Complaint: Recheck/Abnormal Lab/Rx Stated Complaint: Vomiting,Dizziness Time Seen by Provider: 04/01/24 20:52 Source: patient, RN notes reviewed, old records reviewed Mode of arrival: ambulatory Limitations: no limitations - History of Present Illness Initial Comments: This is day 73-year-old female to the ER for evaluation of persistent weakness and decreased activity level. Patient has not eaten or drinking throughout the course of today per the family member and not taking medications. MD Complaint: abnormal lab (Significant dehydration) -: days(s) Returns Today for: Called Because of Abnormal Lab/Test, persistent/worsening pain related to initial visit Symptoms Since Prior Visit: worsening pain Context: planned re-check Associated Symptoms: none - Related Data Home Medications Medication Instructions Recorded Confirmed Atorvastatin [Lipitor] 20 mg PO DAILY 03/19/24 04/02/24 Insulin Glargine,Hum.rec.anlog 16 units SQ HS 03/19/24 04/02/24 [Lantus Solostar Pen] Oxybutynin ER [Ditropan XL] 10 mg PO DAILY 03/19/24 04/02/24 metFORMIN HCL 500 mg PO BID 03/19/24 04/02/24 Previous Rx's Medication Instructions Recorded Acetaminophen Tab [Tylenol] 650 mg PO Q6HR PRN tab 03/22/24 cefUROXime axetiL [Ceftin] 500 mg PO BID 3 Days #6 tab 04/04/24 Allergies Allergy/AdvReac Type Severity Reaction Status Date / Time No Known Allergies Allergy Verified 04/02/24 11:00 Review of Systems ROS Statement: Those systems with pertinent positive or pertinent negative responses have been documented in the HPI. ROS Other: All systems not noted in ROS Statement are negative. Past Medical History Past Medical History: Diabetes Mellitus, Hypertension Additional Past Medical History / Comment(s): cognitive delay History of Any Multi-Drug Resistant Organisms: None Reported Past Surgical History: Hysterectomy Past Psychological History: No Psychological Hx Reported Smoking Status: Never smoker Past Alcohol Use History: None Reported Past Drug Use History: None Reported General Exam Limitations: no limitations General appearance: alert, in no apparent distress Head exam: Present: atraumatic, normocephalic, normal inspection Eye exam: Present: normal appearance, PERRL, EOMI. Absent: scleral icterus, conjunctival injection, periorbital swelling ENT exam: Present: normal exam, mucous membranes moist Neck exam: Present: normal inspection. Absent: tenderness, meningismus, lymphadenopathy Respiratory exam: Present: normal lung sounds bilaterally. Absent: respiratory distress, wheezes, rales, rhonchi, stridor Cardiovascular Exam: Present: regular rate, normal rhythm, normal heart sounds. Absent: systolic murmur, diastolic murmur, rubs, gallop, clicks GI/Abdominal exam: Present: soft, normal bowel sounds. Absent: distended, tenderness, guarding, rebound, rigid Extremities exam: Present: normal inspection, full ROM, normal capillary refill. Absent: tenderness, pedal edema, joint swelling, calf tenderness Back exam: Present: normal inspection Neurological exam: Present: alert, oriented X3, CN II-XII intact Psychiatric exam: Present: normal affect, normal mood Skin exam: Present: warm, dry, intact, normal color. Absent: rash Course Vital Signs 04/01/24 04/01/24 04/01/24 20:04 21:19 21:59 Temperature 98.2 F 98.8 F Pulse Rate 93 84 75 Respiratory 16 16 14 Rate Blood Pressure 123/77 113/75 117/60 O2 Sat by Pulse 96 94 L 95 Oximetry 04/01/24 22:30 Temperature 97.8 F Pulse Rate 81 Respiratory 16 Rate Blood Pressure 134/59 O2 Sat by Pulse 93 L Oximetry - Reevaluation(s) Reevaluation #1: 04/01/24 21:57 Records reviewed Reevaluation #2: 04/01/24 21:57 Has no change in symptoms here in the ER Reevaluation #3: 04/01/24 21:57 Patient informed of results and questions answered Reevaluation #4: Was pt. sent in by a medical professional or institution (, PA, REAL ESTATE PHOTOGRAPHER, urgent care, hospital, or usp...) When possible be specific @ -no Did you speak to anyone other than the patient for history (EMS, parent, family, police, friend...)? What history was obtained from this source @ -no Did you review nursing and triage notes (agree or disagree)? Why? @ -agree Are old charts reviewed (outside hosp., previous admission, EMS record, old EKG, old radiological studies, urgent care reports/EKG's, usp records)? Report findings @ -yes Differential Diagnosis (chest pain, altered mental status, abdominal pain women, abdominal pain men, vaginal bleeding, weakness, fever, dyspnea, syncope, headache, dizziness, GI bleed, back pain, seizure, CVA, palpatations, mental health, musculoskeletal)? @ -prior EKG interpreted by me (3pts min.). @ -yes X-rays interpreted by me (1pt min.). @ -no CT interpreted by me (1pt min.). @ -no U/S interpreted by me (1pt. min.). @ -no What testing was considered but not performed or refused? (CT, X-rays, U/S, labs )? Why? @ -none What meds were considered but not given or refused? Why? @ -none Did you discuss the management of the patient with other professionals (professionals i.e. , PA, REAL ESTATE PHOTOGRAPHER, lab, RT, psych nurse, psychiatric social worker, plant engineer, teacher, contracting officer, case filler)? Give summary @ -no Was smoking cessation discussed for >3mins.? @ -no Was critical care preformed (if so, how long)? @ -no Were there social determinants of health that impacted care today? How? (Homelessness, low income, unemployed, alcoholism, drug addiction, transportation, low edu. Level, literacy, decrease access to med. care, group home, rehab)? @ -none Was there de-escalation of care discussed even if they declined (Discuss DNR or withdrawal of care, Hospice)? DNR status @ -no What co-morbidities impacted this encounter? (DM, HTN, Smoking, COPD, CAD, Cancer, CVA, ARF, Chemo, Hep., AIDS, mental health diagnosis, sleep apnea, morbid obesity)? @ -none Was patient admitted / discharged? Hospital course, mention meds given and route, prescriptions, significant lab abnormalities, going to OR and other pertinent info. @ - 73 Female will admit for persistent dehydration and anion gap metabolic acidosis Discharge Undiagnosed new problem with uncertain prognosis? @ -no Drug Therapy requiring intensive monitoring for toxicity (Heparin, Nitro, Insulin, Cardizem)? @ -no Were any procedures done? @ -no Diagnosis/symptom? @ -Dehydration nausea vomiting acidosis Acute, or Chronic, or Acute on Chronic? @ -Acute Uncomplicated (without systemic symptoms) or Complicated (systemic symptoms)? @ -Complicated Side effects of treatment? @ -no Exacerbation, Progression, or Severe Exacerbation? @ -exacerbation Poses a threat to life or bodily function? How? (Chest pain, USA, ID, pneumonia, PE, COPD, DKA, ARF, appy, cholecystitis, CVA, Diverticulitis, Homicidal, Suicidal, threat to staff... and all critical care pts) @ -yes abnormal electrolytes Reevaluation #5: Differential Chest Pain: Stable Angina, Unstable Angina, STEMI, NSTEMI Aortic Dissection, Pneumothorax, Musculoskeletal, Esophageal Spasm GERD, Cholecystitis, Pancreatitis, Zoster, this is not meant to be an all-inclusive list. - Consultations Consultation #1: Spoke with admitting physicians who agreed to admit this patient Medical Decision Making - Medical Decision Making 73 Female will admit for persistent dehydration and anion gap metabolic acidosis - Lab Data Result diagrams: 04/03/24 02:43 04/04/24 10:36 Lab Results 04/01/24 04/01/24 04/01/24 Range/Units 20:06 21:06 21:06 WBC 8.5 (3.8-10.6) k/uL RBC 5.23 (3.80-5.40) m/uL Hgb 15.8 (11.4-16.0) gm/dL Hct 49.1 H (34.0-46.0) % MCV 93.9 (80.0-100.0) fL MCH 30.3 (25.0-35.0) pg MCHC 32.3 (31.0-37.0) g/dL RDW 13.2 (11.5-15.5) % Plt Count 275 (150-450) k/uL MPV 6.9 Immature Gran % (Auto) % Absolute Nucleated RBC % Neutrophils % 62 % Lymphocytes % 31 % Monocytes % 4 % Eosinophils % 1 % Basophils % 1 % Immature Gran # (0.00-0.04) X 10*3/uL Neutrophils # 5.3 (1.3-7.7) k/uL Lymphocytes # 2.6 (1.0-4.8) k/uL Monocytes # 0.4 (0-1.0) k/uL Eosinophils # 0.1 (0-0.7) k/uL Basophils # 0.1 (0-0.2) k/uL NRBC/100 WBC Diff (0.00-0.01) X 10*3/uL ESR (0-30) mm/Hr PT 10.8 (10.0-12.5) sec INR 1.0 (<1.2) APTT 22.2 (22.0-30.0) sec Sodium (137-145) mmol/L Potassium (3.5-5.1) mmol/L Chloride (98-107) mmol/L Carbon Dioxide (22-30) mmol/L Anion Gap mmol/L BUN (7-17) mg/dL Creatinine (0.52-1.04) mg/dL Est GFR (CKD-EPI) (>=60) Est GFR (CKD-EPI)AfAm (>60 ml/min/1.73 sqM) Est GFR (CKD-EPI)NonAf (>60 ml/min/1.73 sqM) BUN/Creatinine Ratio (12.00-20.00) Ratio Glucose (74-99) mg/dL POC Glucose (mg/dL) 71 (70-110) mg/dL POC Glu Instructor Of Education Luna [address] Glu mg/dL mg/dL Hemoglobin A1c (<=6.0) % Plasma Lactic Acid Regulo (0.7-2.0) mmol/L Calcium (8.4-10.2) mg/dL Phosphorus (2.5-4.5) mg/dL Magnesium (1.6-2.3) mg/dL Total Bilirubin (0.2-1.3) mg/dL AST (14-36) U/L ALT (4-34) U/L Alkaline Phosphatase (38-126) U/L Troponin I (0.000-0.034) ng/mL C-Reactive Protein (<1.0) mg/dL Total Protein (6.3-8.2) g/dL Albumin (3.5-5.0) g/dL Globulin (1.6-3.3) g/dL Albumin/Globulin Ratio (1.60-3.17) Ratio TSH (0.465-4.680) mIU/L Urine Color Urine Appearance (Clear) Urine pH (5.0-8.0) Ur Specific [place] (1.001-1.035) Urine Protein (Negative) Urine Glucose (UA) (Negative) Urine Ketones (Negative) Urine Blood (Negative) Urine Nitrite (Negative) Urine Bilirubin (Negative) Urine Urobilinogen (<2.0) mg/dL Ur Leukocyte Esterase (Negative) Urine RBC (0-5) /hpf Urine WBC (0-5) /hpf Ur Squamous Epith Cells (0-4) /hpf Urine Bacteria (None) /hpf Hyaline Casts (0-2) /lpf Urine Mucus (None) /hpf Urine Yeast (Budding) (None) /hpf Acetone, Qual (Negative) 04/01/24 04/01/24 04/01/24 Range/Units 21:06 21:06 21:06 WBC (3.8-10.6) k/uL RBC (3.80-5.40) m/uL Hgb (11.4-16.0) gm/dL Hct (34.0-46.0) % MCV (80.0-100.0) fL MCH (25.0-35.0) pg MCHC (31.0-37.0) g/dL RDW (11.5-15.5) % Plt Count (150-450) k/uL MPV Immature Gran % (Auto) % Absolute Nucleated RBC % Neutrophils % % Lymphocytes % % Monocytes % % Eosinophils % % Basophils % % Immature Gran # (0.00-0.04) X 10*3/uL Neutrophils # (1.3-7.7) k/uL Lymphocytes # (1.0-4.8) k/uL Monocytes # (0-1.0) k/uL Eosinophils # (0-0.7) k/uL Basophils # (0-0.2) k/uL NRBC/100 WBC Diff (0.00-0.01) X 10*3/uL ESR (0-30) mm/Hr PT (10.0-12.5) sec INR (<1.2) APTT (22.0-30.0) sec Sodium 135 L (137-145) mmol/L Potassium 4.3 (3.5-5.1) mmol/L Chloride 99 (98-107) mmol/L Carbon Dioxide 14 L (22-30) mmol/L Anion Gap 22 mmol/L BUN 17 (7-17) mg/dL Creatinine 0.80 (0.52-1.04) mg/dL Est GFR (CKD-EPI) (>=60) Est GFR (CKD-EPI)AfAm 84 (>60 ml/min/1.73 sqM) Est GFR (CKD-EPI)NonAf 73 (>60 ml/min/1.73 sqM) BUN/Creatinine Ratio (12.00-20.00) Ratio Glucose 89 (74-99) mg/dL POC Glucose (mg/dL) (70-110) mg/dL POC Glu Instructor Of Education ID Estimated Ave Glu mg/dL mg/dL Hemoglobin A1c (<=6.0) % Plasma Lactic Acid Regulo 1.4 (0.7-2.0) mmol/L Calcium 10.0 (8.4-10.2) mg/dL Phosphorus 3.9 (2.5-4.5) mg/dL Magnesium 1.3 L (1.6-2.3) mg/dL Total Bilirubin 1.9 H (0.2-1.3) mg/dL AST 29 (14-36) U/L ALT 25 (4-34) U/L Alkaline Phosphatase 70 (38-126) U/L Troponin I <0.012 (0.000-0.034) ng/mL C-Reactive Protein (<1.0) mg/dL Total Protein 7.1 (6.3-8.2) g/dL Albumin 4.5 (3.5-5.0) g/dL Globulin (1.6-3.3) g/dL Albumin/Globulin Ratio (1.60-3.17) Ratio TSH 3.310 (0.465-4.680) mIU/L Urine Color Urine Appearance (Clear) Urine pH (5.0-8.0) Ur Specific [place] (1.001-1.035) Urine Protein (Negative) Urine Glucose (UA) (Negative) Urine Ketones (Negative) Urine Blood (Negative) Urine Nitrite (Negative) Urine Bilirubin (Negative) Urine Urobilinogen (<2.0) mg/dL Ur Leukocyte Esterase (Negative) Urine RBC (0-5) /hpf Urine WBC (0-5) /hpf Ur Squamous Epith Cells (0-4) /hpf Urine Bacteria (None) /hpf Hyaline Casts (0-2) /lpf Urine Mucus (None) /hpf Urine Yeast (Budding) (None) /hpf Acetone, Qual Positive (Negative) 04/02/24 04/02/24 04/02/24 Range/Units 00:00 01:00 02:53 WBC (3.8-10.6) k/uL RBC (3.80-5.40) m/uL Hgb (11.4-16.0) gm/dL Hct (34.0-46.0) % MCV (80.0-100.0) fL MCH (25.0-35.0) pg MCHC (31.0-37.0) g/dL RDW (11.5-15.5) % Plt Count (150-450) k/uL MPV Immature Gran % (Auto) % Absolute Nucleated RBC % Neutrophils % % Lymphocytes % % Monocytes % % Eosinophils % % Basophils % % Immature Gran # (0.00-0.04) X 10*3/uL Neutrophils # (1.3-7.7) k/uL Lymphocytes # (1.0-4.8) k/uL Monocytes # (0-1.0) k/uL Eosinophils # (0-0.7) k/uL Basophils # (0-0.2) k/uL NRBC/100 WBC Diff (0.00-0.01) X 10*3/uL ESR (0-30) mm/Hr PT (10.0-12.5) sec INR (<1.2) APTT (22.0-30.0) sec Sodium (137-145) mmol/L Potassium (3.5-5.1) mmol/L Chloride (98-107) mmol/L Carbon Dioxide (22-30) mmol/L Anion Gap mmol/L BUN (7-17) mg/dL Creatinine (0.52-1.04) mg/dL Est GFR (CKD-EPI) (>=60) Est GFR (CKD-EPI)AfAm (>60 ml/min/1.73 sqM) Est GFR (CKD-EPI)NonAf (>60 ml/min/1.73 sqM) BUN/Creatinine Ratio (12.00-20.00) Ratio Glucose (74-99) mg/dL POC Glucose (mg/dL) (70-110) mg/dL POC Glu Instructor Of Education ID Estimated Ave Glu mg/dL mg/dL Hemoglobin A1c (<=6.0) % Plasma Lactic Acid Regulo (0.7-2.0) mmol/L Calcium (8.4-10.2) mg/dL Phosphorus (2.5-4.5) mg/dL Magnesium (1.6-2.3) mg/dL Total Bilirubin (0.2-1.3) mg/dL AST (14-36) U/L ALT (4-34) U/L Alkaline Phosphatase (38-126) U/L Troponin I <0.012 <0.012 (0.000-0.034) ng/mL C-Reactive Protein (<1.0) mg/dL Total Protein (6.3-8.2) g/dL Albumin (3.5-5.0) g/dL Globulin (1.6-3.3) g/dL Albumin/Globulin Ratio (1.60-3.17) Ratio TSH (0.465-4.680) mIU/L Urine Color Light Yellow Urine Appearance Clear (Clear) Urine pH 5.5 (5.0-8.0) Ur Specific [place] 1.023 (1.001-1.035) Urine Protein Trace H (Negative) Urine Glucose (UA) 3+ H (Negative) Urine Ketones 4+ H (Negative) Urine Blood Negative (Negative) Urine Nitrite Negative (Negative) Urine Bilirubin Negative (Negative) Urine Urobilinogen <2.0 (<2.0) mg/dL Ur Leukocyte Esterase Moderate H (Negative) Urine RBC 2 (0-5) /hpf Urine WBC 26 H (0-5) /hpf Ur Squamous Epith Cells 2 (0-4) /hpf Urine Bacteria Rare H (None) /hpf Hyaline Casts 28 H (0-2) /lpf Urine Mucus Rare H (None) /hpf Urine Yeast (Budding) Rare H (None) /hpf Acetone, Qual (Negative) 04/02/24 04/02/24 04/02/24 Range/Units 02:53 02:53 02:53 WBC 8.1 (3.8-10.6) k/uL RBC 4.64 (3.80-5.40) m/uL Hgb 14.1 (11.4-16.0) gm/dL Hct 43.5 (34.0-46.0) % MCV 93.7 (80.0-100.0) fL MCH 30.4 (25.0-35.0) pg MCHC 32.5 (31.0-37.0) g/dL RDW 13.5 (11.5-15.5) % Plt Count 239 (150-450) k/uL MPV 7.3 Immature Gran % (Auto) % Absolute Nucleated RBC % Neutrophils % 73 % Lymphocytes % 20 % Monocytes % 5 % Eosinophils % 1 % Basophils % 0 % Immature Gran # (0.00-0.04) X 10*3/uL Neutrophils # 5.9 (1.3-7.7) k/uL Lymphocytes # 1.6 (1.0-4.8) k/uL Monocytes # 0.4 (0-1.0) k/uL Eosinophils # 0.0 (0-0.7) k/uL Basophils # 0.0 (0-0.2) k/uL NRBC/100 WBC Diff (0.00-0.01) X 10*3/uL ESR 13 (0-30) mm/Hr PT (10.0-12.5) sec INR (<1.2) APTT (22.0-30.0) sec Sodium 137 (137-145) mmol/L Potassium 3.9 (3.5-5.1) mmol/L Chloride 104 (98-107) mmol/L Carbon Dioxide 17 L (22-30) mmol/L Anion Gap 16 mmol/L BUN 15 (7-17) mg/dL Creatinine 0.65 (0.52-1.04) mg/dL Est GFR (CKD-EPI) (>=60) Est GFR (CKD-EPI)AfAm >90 (>60 ml/min/1.73 sqM) Est GFR (CKD-EPI)NonAf 87 (>60 ml/min/1.73 sqM) BUN/Creatinine Ratio (12.00-20.00) Ratio Glucose 92 (74-99) mg/dL POC Glucose (mg/dL) (70-110) mg/dL POC Glu Instructor Of Education ID Estimated Ave Glu mg/dL mg/dL Hemoglobin A1c (<=6.0) % Plasma Lactic Acid Regulo (0.7-2.0) mmol/L Calcium 9.1 (8.4-10.2) mg/dL Phosphorus 3.7 (2.5-4.5) mg/dL Magnesium 1.5 L (1.6-2.3) mg/dL Total Bilirubin 1.5 H (0.2-1.3) mg/dL AST 23 (14-36) U/L ALT 22 (4-34) U/L Alkaline Phosphatase 61 (38-126) U/L Troponin I (0.000-0.034) ng/mL C-Reactive Protein (<1.0) mg/dL Total Protein 6.0 L (6.3-8.2) g/dL Albumin 3.7 (3.5-5.0) g/dL Globulin (1.6-3.3) g/dL Albumin/Globulin Ratio (1.60-3.17) Ratio TSH (0.465-4.680) mIU/L Urine Color Urine Appearance (Clear) Urine pH (5.0-8.0) Ur Specific [place] (1.001-1.035) Urine Protein (Negative) Urine Glucose (UA) (Negative) Urine Ketones (Negative) Urine Blood (Negative) Urine Nitrite (Negative) Urine Bilirubin (Negative) Urine Urobilinogen (<2.0) mg/dL Ur Leukocyte Esterase (Negative) Urine RBC (0-5) /hpf Urine WBC (0-5) /hpf Ur Squamous Epith Cells (0-4) /hpf Urine Bacteria (None) /hpf Hyaline Casts (0-2) /lpf Urine Mucus (None) /hpf Urine Yeast (Budding) (None) /hpf Acetone, Qual (Negative) 04/02/24 04/02/24 04/02/24 Range/Units 02:53 12:00 17:13 WBC (3.8-10.6) k/uL RBC (3.80-5.40) m/uL Hgb (11.4-16.0) gm/dL Hct (34.0-46.0) % MCV (80.0-100.0) fL MCH (25.0-35.0) pg MCHC (31.0-37.0) g/dL RDW (11.5-15.5) % Plt Count (150-450) k/uL MPV Immature Gran % (Auto) % Absolute Nucleated RBC % Neutrophils % % Lymphocytes % % Monocytes % % Eosinophils % % Basophils % % Immature Gran # (0.00-0.04) X 10*3/uL Neutrophils # (1.3-7.7) k/uL Lymphocytes # (1.0-4.8) k/uL Monocytes # (0-1.0) k/uL Eosinophils # (0-0.7) k/uL Basophils # (0-0.2) k/uL NRBC/100 WBC Diff (0.00-0.01) X 10*3/uL ESR (0-30) mm/Hr PT (10.0-12.5) sec INR (<1.2) APTT (22.0-30.0) sec Sodium (137-145) mmol/L Potassium (3.5-5.1) mmol/L Chloride (98-107) mmol/L Carbon Dioxide (22-30) mmol/L Anion Gap mmol/L BUN (7-17) mg/dL Creatinine (0.52-1.04) mg/dL Est GFR (CKD-EPI) (>=60) Est GFR (CKD-EPI)AfAm (>60 ml/min/1.73 sqM) Est GFR (CKD-EPI)NonAf (>60 ml/min/1.73 sqM) BUN/Creatinine Ratio (12.00-20.00) Ratio Glucose (74-99) mg/dL POC Glucose (mg/dL) 100 160 H (70-110) mg/dL POC Glu Instructor Of Education ID Enma, Opal Thorne Martina [address] Glu mg/dL mg/dL Hemoglobin A1c (<=6.0) % Plasma Lactic Acid Regulo (0.7-2.0) mmol/L Calcium (8.4-10.2) mg/dL Phosphorus (2.5-4.5) mg/dL Magnesium (1.6-2.3) mg/dL Total Bilirubin (0.2-1.3) mg/dL AST (14-36) U/L ALT (4-34) U/L Alkaline Phosphatase (38-126) U/L Troponin I (0.000-0.034) ng/mL C-Reactive Protein <0.5 (<1.0) mg/dL Total Protein (6.3-8.2) g/dL Albumin (3.5-5.0) g/dL Globulin (1.6-3.3) g/dL Albumin/Globulin Ratio (1.60-3.17) Ratio TSH (0.465-4.680) mIU/L Urine Color Urine Appearance (Clear) Urine pH (5.0-8.0) Ur Specific [place] (1.001-1.035) Urine Protein (Negative) Urine Glucose (UA) (Negative) Urine Ketones (Negative) Urine Blood (Negative) Urine Nitrite (Negative) Urine Bilirubin (Negative) Urine Urobilinogen (<2.0) mg/dL Ur Leukocyte Esterase (Negative) Urine RBC (0-5) /hpf Urine WBC (0-5) /hpf Ur Squamous Epith Cells (0-4) /hpf Urine Bacteria (None) /hpf Hyaline Casts (0-2) /lpf Urine Mucus (None) /hpf Urine Yeast (Budding) (None) /hpf Acetone, Qual (Negative) 04/02/24 04/03/24 04/03/24 Range/Units 20:19 02:43 02:43 WBC 5.90 (3.8-10.6) k/uL RBC 4.31 (3.80-5.40) m/uL Hgb 12.9 (11.4-16.0) gm/dL Hct 38.6 (34.0-46.0) % MCV 89.6 (80.0-100.0) fL MCH 29.9 (25.0-35.0) pg MCHC 33.4 (31.0-37.0) g/dL RDW 12.9 (11.5-15.5) % Plt Count 200 (150-450) k/uL MPV 9.0 L Immature Gran % (Auto) 0.20 % Absolute Nucleated RBC 0 % Neutrophils % 53.4 % Lymphocytes % 36.4 % Monocytes % 7.6 % Eosinophils % 1.9 % Basophils % 0.5 % Immature Gran # 0.01 (0.00-0.04) X 10*3/uL Neutrophils # 3.15 (1.3-7.7) k/uL Lymphocytes # 2.15 (1.0-4.8) k/uL Monocytes # 0.45 (0-1.0) k/uL Eosinophils # 0.11 (0-0.7) k/uL Basophils # 0.03 (0-0.2) k/uL NRBC/100 WBC Diff 0 (0.00-0.01) X 10*3/uL ESR (0-30) mm/Hr PT (10.0-12.5) sec INR (<1.2) APTT (22.0-30.0) sec Sodium (137-145) mmol/L Potassium (3.5-5.1) mmol/L Chloride (98-107) mmol/L Carbon Dioxide (22-30) mmol/L Anion Gap mmol/L BUN (7-17) mg/dL Creatinine (0.52-1.04) mg/dL Est GFR (CKD-EPI) (>=60) Est GFR (CKD-EPI)AfAm (>60 ml/min/1.73 sqM) Est GFR (CKD-EPI)NonAf (>60 ml/min/1.73 sqM) BUN/Creatinine Ratio (12.00-20.00) Ratio Glucose (74-99) mg/dL POC Glucose (mg/dL) 132 H (70-110) mg/dL POC Glu Instructor Of Education ID Francisca Crain [address] Glu mg/dL 154 mg/dL Hemoglobin A1c 7.0 H (<=6.0) % Plasma Lactic Acid Regulo (0.7-2.0) mmol/L Calcium (8.4-10.2) mg/dL Phosphorus (2.5-4.5) mg/dL Magnesium (1.6-2.3) mg/dL Total Bilirubin (0.2-1.3) mg/dL AST (14-36) U/L ALT (4-34) U/L Alkaline Phosphatase (38-126) U/L Troponin I (0.000-0.034) ng/mL C-Reactive Protein (<1.0) mg/dL Total Protein (6.3-8.2) g/dL Albumin (3.5-5.0) g/dL Globulin (1.6-3.3) g/dL Albumin/Globulin Ratio (1.60-3.17) Ratio TSH (0.465-4.680) mIU/L Urine Color Urine Appearance (Clear) Urine pH (5.0-8.0) Ur Specific [place] (1.001-1.035) Urine Protein (Negative) Urine Glucose (UA) (Negative) Urine Ketones (Negative) Urine Blood (Negative) Urine Nitrite (Negative) Urine Bilirubin (Negative) Urine Urobilinogen (<2.0) mg/dL Ur Leukocyte Esterase (Negative) Urine RBC (0-5) /hpf Urine WBC (0-5) /hpf Ur Squamous Epith Cells (0-4) /hpf Urine Bacteria (None) /hpf Hyaline Casts (0-2) /lpf Urine Mucus (None) /hpf Urine Yeast (Budding) (None) /hpf Acetone, Qual (Negative) 04/03/24 04/03/24 04/03/24 Range/Units 02:43 02:59 05:36 WBC (3.8-10.6) k/uL RBC (3.80-5.40) m/uL Hgb (11.4-16.0) gm/dL Hct (34.0-46.0) % MCV (80.0-100.0) fL MCH (25.0-35.0) pg MCHC (31.0-37.0) g/dL RDW (11.5-15.5) % Plt Count (150-450) k/uL MPV Immature Gran % (Auto) % Absolute Nucleated RBC % Neutrophils % % Lymphocytes % % Monocytes % % Eosinophils % % Basophils % % Immature Gran # (0.00-0.04) X 10*3/uL Neutrophils # (1.3-7.7) k/uL Lymphocytes # (1.0-4.8) k/uL Monocytes # (0-1.0) k/uL Eosinophils # (0-0.7) k/uL Basophils # (0-0.2) k/uL NRBC/100 WBC Diff (0.00-0.01) X 10*3/uL ESR (0-30) mm/Hr PT (10.0-12.5) sec INR (<1.2) APTT (22.0-30.0) sec Sodium 139 (137-145) mmol/L Potassium 3.6 (3.5-5.1) mmol/L Chloride 105 (98-107) mmol/L Carbon Dioxide 22.4 (22-30) mmol/L Anion Gap 11.60 mmol/L BUN 7.2 L (7-17) mg/dL Creatinine 0.6 (0.52-1.04) mg/dL Est GFR (CKD-EPI) 94 (>=60) Est GFR (CKD-EPI)AfAm (>60 ml/min/1.73 sqM) Est GFR (CKD-EPI)NonAf (>60 ml/min/1.73 sqM) BUN/Creatinine Ratio 12.00 (12.00-20.00) Ratio Glucose 78 (74-99) mg/dL POC Glucose (mg/dL) 70 68 L (70-110) mg/dL POC Glu [employer] Francisca Stoll [address] Glu mg/dL mg/dL Hemoglobin A1c (<=6.0) % Plasma Lactic Acid Regulo (0.7-2.0) mmol/L Calcium 8.3 L (8.4-10.2) mg/dL Phosphorus (2.5-4.5) mg/dL Magnesium (1.6-2.3) mg/dL Total Bilirubin 0.9 (0.2-1.3) mg/dL AST 20 (14-36) U/L ALT 19 (4-34) U/L Alkaline Phosphatase 60 (38-126) U/L Troponin I (0.000-0.034) ng/mL C-Reactive Protein (<1.0) mg/dL Total Protein 5.3 L (6.3-8.2) g/dL Albumin 3.4 L (3.5-5.0) g/dL Globulin 1.9 (1.6-3.3) g/dL Albumin/Globulin Ratio 1.79 (1.60-3.17) Ratio TSH (0.465-4.680) mIU/L Urine Color Urine Appearance (Clear) Urine pH (5.0-8.0) Ur Specific [place] (1.001-1.035) Urine Protein (Negative) Urine Glucose (UA) (Negative) Urine Ketones (Negative) Urine Blood (Negative) Urine Nitrite (Negative) Urine Bilirubin (Negative) Urine Urobilinogen (<2.0) mg/dL Ur Leukocyte Esterase (Negative) Urine RBC (0-5) /hpf Urine WBC (0-5) /hpf Ur Squamous Epith Cells (0-4) /hpf Urine Bacteria (None) /hpf Hyaline Casts (0-2) /lpf Urine Mucus (None) /hpf Urine Yeast (Budding) (None) /hpf Acetone, Qual (Negative) 04/03/24 04/03/24 04/03/24 Range/Units 05:59 12:10 17:11 WBC (3.8-10.6) k/uL RBC (3.80-5.40) m/uL Hgb (11.4-16.0) gm/dL Hct (34.0-46.0) % MCV (80.0-100.0) fL MCH (25.0-35.0) pg MCHC (31.0-37.0) g/dL RDW (11.5-15.5) % Plt Count (150-450) k/uL MPV Immature Gran % (Auto) % Absolute Nucleated RBC % Neutrophils % % Lymphocytes % % Monocytes % % Eosinophils % % Basophils % % Immature Gran # (0.00-0.04) X 10*3/uL Neutrophils # (1.3-7.7) k/uL Lymphocytes # (1.0-4.8) k/uL Monocytes # (0-1.0) k/uL Eosinophils # (0-0.7) k/uL Basophils # (0-0.2) k/uL NRBC/100 WBC Diff (0.00-0.01) X 10*3/uL ESR (0-30) mm/Hr PT (10.0-12.5) sec INR (<1.2) APTT (22.0-30.0) sec Sodium (137-145) mmol/L Potassium (3.5-5.1) mmol/L Chloride (98-107) mmol/L Carbon Dioxide (22-30) mmol/L Anion Gap mmol/L BUN (7-17) mg/dL Creatinine (0.52-1.04) mg/dL Est GFR (CKD-EPI) (>=60) Est GFR (CKD-EPI)AfAm (>60 ml/min/1.73 sqM) Est GFR (CKD-EPI)NonAf (>60 ml/min/1.73 sqM) BUN/Creatinine Ratio (12.00-20.00) Ratio Glucose (74-99) mg/dL POC Glucose (mg/dL) 79 111 H 135 H (70-110) mg/dL POC Glu [employer] ID Francisca Crain Emma Parker, [address] Glu mg/dL mg/dL Hemoglobin A1c (<=6.0) % Plasma Lactic Acid Regulo (0.7-2.0) mmol/L Calcium (8.4-10.2) mg/dL Phosphorus (2.5-4.5) mg/dL Magnesium (1.6-2.3) mg/dL Total Bilirubin (0.2-1.3) mg/dL AST (14-36) U/L ALT (4-34) U/L Alkaline Phosphatase (38-126) U/L Troponin I (0.000-0.034) ng/mL C-Reactive Protein (<1.0) mg/dL Total Protein (6.3-8.2) g/dL Albumin (3.5-5.0) g/dL Globulin (1.6-3.3) g/dL Albumin/Globulin Ratio (1.60-3.17) Ratio TSH (0.465-4.680) mIU/L Urine Color Urine Appearance (Clear) Urine pH (5.0-8.0) Ur Specific [place] (1.001-1.035) Urine Protein (Negative) Urine Glucose (UA) (Negative) Urine Ketones (Negative) Urine Blood (Negative) Urine Nitrite (Negative) Urine Bilirubin (Negative) Urine Urobilinogen (<2.0) mg/dL Ur Leukocyte Esterase (Negative) Urine RBC (0-5) /hpf Urine WBC (0-5) /hpf Ur Squamous Epith Cells (0-4) /hpf Urine Bacteria (None) /hpf Hyaline Casts (0-2) /lpf Urine Mucus (None) /hpf Urine Yeast (Budding) (None) /hpf Acetone, Qual (Negative) 04/03/24 04/04/24 Range/Units 21:01 05:36 WBC (3.8-10.6) k/uL RBC (3.80-5.40) m/uL Hgb (11.4-16.0) gm/dL Hct (34.0-46.0) % MCV (80.0-100.0) fL MCH (25.0-35.0) pg MCHC (31.0-37.0) g/dL RDW (11.5-15.5) % Plt Count (150-450) k/uL MPV Immature Gran % (Auto) % Absolute Nucleated RBC % Neutrophils % % Lymphocytes % % Monocytes % % Eosinophils % % Basophils % % Immature Gran # (0.00-0.04) X 10*3/uL Neutrophils # (1.3-7.7) k/uL Lymphocytes # (1.0-4.8) k/uL Monocytes # (0-1.0) k/uL Eosinophils # (0-0.7) k/uL Basophils # (0-0.2) k/uL NRBC/100 WBC Diff (0.00-0.01) X 10*3/uL ESR (0-30) mm/Hr PT (10.0-12.5) sec INR (<1.2) APTT (22.0-30.0) sec Sodium (137-145) mmol/L Potassium (3.5-5.1) mmol/L Chloride (98-107) mmol/L Carbon Dioxide (22-30) mmol/L Anion Gap mmol/L BUN (7-17) mg/dL Creatinine (0.52-1.04) mg/dL Est GFR (CKD-EPI) (>=60) Est GFR (CKD-EPI)AfAm (>60 ml/min/1.73 sqM) Est GFR (CKD-EPI)NonAf (>60 ml/min/1.73 sqM) BUN/Creatinine Ratio (12.00-20.00) Ratio Glucose (74-99) mg/dL POC Glucose (mg/dL) 135 H 89 (70-110) mg/dL POC Glu In[employer] ID Estimated Ave Glu mg/dL mg/dL Hemoglobin A1c (<=6.0) % Plasma Lactic Acid Regulo (0.7-2.0) mmol/L Calcium (8.4-10.2) mg/dL Phosphorus (2.5-4.5) mg/dL Magnesium (1.6-2.3) mg/dL Total Bilirubin (0.2-1.3) mg/dL AST (14-36) U/L ALT (4-34) U/L Alkaline Phosphatase (38-126) U/L Troponin I (0.000-0.034) ng/mL C-Reactive Protein (<1.0) mg/dL Total Protein (6.3-8.2) g/dL Albumin (3.5-5.0) g/dL Globulin (1.6-3.3) g/dL Albumin/Globulin Ratio (1.60-3.17) Ratio TSH (0.465-4.680) mIU/L Urine Color Urine Appearance (Clear) Urine pH (5.0-8.0) Ur Specific [place] (1.001-1.035) Urine Protein (Negative) Urine Glucose (UA) (Negative) Urine Ketones (Negative) Urine Blood (Negative) Urine Nitrite (Negative) Urine Bilirubin (Negative) Urine Urobilinogen (<2.0) mg/dL Ur Leukocyte Esterase (Negative) Urine RBC (0-5) /hpf Urine WBC (0-5) /hpf Ur Squamous Epith Cells (0-4) /hpf Urine Bacteria (None) /hpf Hyaline Casts (0-2) /lpf Urine Mucus (None) /hpf Urine Yeast (Budding) (None) /hpf Acetone, Qual (Negative) - EKG Data -: EKG Interpreted by Me (EKG is sinus 87 NC 29 QRS 118 QTc 462) Disposition Clinical Impression: Nausea & vomiting, Gastroenteritis, Dehydration Disposition: ADMITTED IP TO THIS HOSP Condition: Fair Is patient prescribed a controlled substance at d/c from ED?: No Time of Disposition: 22:00
[2024-04-01] MEDS: SODIUM CHLORIDE 0.9% 1,000 ML IV STA (21:14)
[2024-04-01 21:22] LABS: Basophils # (A) 0.1 k/uL (0-0.2); Basophils % (A) 1 %; Eosinophils # (A) 0.1 k/uL (0-0.7); Eosinophils % (A) 1 %; HCT 49.1 % (34.0-46.0); HGB 15.8 gm/dL (11.4-16.0); Lymphocytes # (A) 2.6 k/uL (1.0-4.8); Lymphocytes % (A) 31 %; MCH 30.3 pg (25.0-35.0); MCHC 32.3 g/dL (31.0-37.0); MCV 93.9 fL (80.0-100.0); Mean Platelet Volume 6.9; Monocytes # (A) 0.4 k/uL (0-1.0); Monocytes % (A) 4 %; Neutrophils # (A) 5.3 k/uL (1.3-7.7); Neutrophils % (A) 62 %; Platelet Count 275 k/uL (150-450); RBC 5.23 m/uL (3.80-5.40); RDW 13.2 % (11.5-15.5); WBC 8.5 k/uL (3.8-10.6)
[2024-04-01 21:30] LABS: Partial Thromboplastin Time 22.2 sec (22.0-30.0); Prothrombin Time 10.8 sec (10.0-12.5)
[2024-04-01 21:38] LABS: ALT 25 U/L (4-34); AST 29 U/L (14-36); African American GFR (CKD) 84 (>60 ml/min/1.73 sqM); Albumin 4.5 g/dL (3.5-5.0); Alkaline Phosphatase 70 U/L (38-126); Anion Gap 22 mmol/L; Blood Urea Nitrogen 17 mg/dL (7-17); Carbon Dioxide 14 mmol/L (22-30); Chloride 99 mmol/L (98-107); Glucose 89 mg/dL (74-99); Magnesium 1.3 mg/dL (1.6-2.3); Non-African American GFR(CKD) 73 (>60 ml/min/1.73 sqM); Phosphorus 3.9 mg/dL (2.5-4.5); Potassium 4.3 mmol/L (3.5-5.1); Sodium 135 mmol/L (137-145); Total Bilirubin 1.9 mg/dL (0.2-1.3); Total Protein 7.1 g/dL (6.3-8.2)
[2024-04-01] MEDS ORDERED: NALOXONE 0.4 MG/ML 1 ML VIAL IV PRN (21:52)
[2024-04-02] MEDS: SODIUM CHLORIDE 0.9% 1,000 ML IV SCH
[2024-04-02] MEDS: ONDANSETRON 4 MG/2 ML VIAL IVP PRN (01:23)
[2024-04-02 02:02] LABS: Appearance,Urine Clear (Clear); Bacteria,Urine Rare /hpf; Bilirubin,Urine Negative (Negative); Blood,Urine Negative (Negative); Budding Yeast,Urine Rare /hpf; Color,Urine Light Yellow; Glucose,Urine (UA) 3+ (Negative); Hyaline Casts,Urine 28 /lpf (0-2); Leukocyte Esterase,Urine Moderate (Negative); Mucus,Urine Rare /hpf; Nitrite,Urine Negative (Negative); PH, Urine 5.5 (5.0-8.0); Protein,Urine Trace (Negative); RBC,Urine 2 /hpf (0-5); Specific Gravity,Urine 1.023 (1.001-1.035); Squamous Epithelial Cell,Urine 2 /hpf (0-4); Urobilinogen,Urine <2.0 mg/dL (<2.0); WBC,Urine 26 /hpf (0-5)
[2024-04-02 02:08] LABS: Ketones,Urine 4+ (Negative)
[2024-04-02] MEDS: MAGNESIUM SULFATE-D5W PMX 1 GM in DEXTROSE/WATER 1 100ML.BAG IVPB SCH ×2 (02:20→14:04)
[2024-04-02 03:28] LABS: Basophils % (A) 0 %; Eosinophils % (A) 1 %; HCT 43.5 % (34.0-46.0); HGB 14.1 gm/dL (11.4-16.0); Lymphocytes # (A) 1.6 k/uL (1.0-4.8); Lymphocytes % (A) 20 %; MCH 30.4 pg (25.0-35.0); MCHC 32.5 g/dL (31.0-37.0); MCV 93.7 fL (80.0-100.0); Mean Platelet Volume 7.3; Monocytes # (A) 0.4 k/uL (0-1.0); Monocytes % (A) 5 %; Neutrophils # (A) 5.9 k/uL (1.3-7.7); Neutrophils % (A) 73 %; Platelet Count 239 k/uL (150-450); RBC 4.64 m/uL (3.80-5.40); RDW 13.5 % (11.5-15.5); WBC 8.1 k/uL (3.8-10.6)
[2024-04-02 03:29] LABS: ALT 22 U/L (4-34); AST 23 U/L (14-36); African American GFR (CKD) >90 (>60 ml/min/1.73 sqM); Albumin 3.7 g/dL (3.5-5.0); Alkaline Phosphatase 61 U/L (38-126); Anion Gap 16 mmol/L; Blood Urea Nitrogen 15 mg/dL (7-17); Calcium 9.1 mg/dL (8.4-10.2); Carbon Dioxide 17 mmol/L (22-30); Chloride 104 mmol/L (98-107); Glucose 92 mg/dL (74-99); Magnesium 1.5 mg/dL (1.6-2.3); Non-African American GFR(CKD) 87 (>60 ml/min/1.73 sqM); Phosphorus 3.7 mg/dL (2.5-4.5); Potassium 3.9 mmol/L (3.5-5.1); Sodium 137 mmol/L (137-145); Total Bilirubin 1.5 mg/dL (0.2-1.3)
[2024-04-02] MEDS: MORPHINE SULFATE 2 MG/ML SYRINGE IV PRN (03:35)
[2024-04-02] MEDS ORDERED: NALOXONE 0.4 MG/ML 1 ML VIAL IV PRN (09:20)
[2024-04-02] MEDS ORDERED: MELATONIN 3 MG TABLET PO PRN (09:20)
[2024-04-02] MEDS ORDERED: MAG HYDROX/AL HYDROX/SIMETH 30 ML CUP PO PRN (09:20)
[2024-04-02] MEDS ORDERED: TEMAZEPAM 15 MG CAP PO PRN (09:20)
[2024-04-02] MEDS ORDERED: DEXTROSE 50% SYRINGE 50 ML IVP PRN ×2 (09:33)
--- NOTE | 2024-04-02 10:01 | XR ---
EXAMINATION TYPE: XR chest 2V DATE OF EXAM: 04/02/2024 COMPARISON: 08/06/2012 INDICATION: Weakness TECHNIQUE: Frontal and lateral views of the chest are obtained. FINDINGS: The heart size is upper limits of normal. The pulmonary vasculature is normal. The lungs are clear. IMPRESSION: 1. No acute pulmonary process. [facility], , 04/02/2024 9:59 AM
[2024-04-02 12:01] LABS: Glucose,Whole Blood 100 mg/dL (70-110)
[2024-04-02] MEDS: INSULIN ASPART (NovoLOG) 100 UNIT/ML VIAL SQ SCH (12:11)
--- NOTE | 2024-04-02 13:57 | P.HPIM ---
History of Present Illness H&P Date: 04/02/24 History of present illness; patient is a 73-year-old lady with past medical history significant forHyperlipidemia, insulin-dependent diabetes mellitus, presented the ER for generalized weakness. Patient family stated that the patient has not been eating for the last few days. Patient was initially admitted in the beginning of the month with similar complaints at which time patient was found to be UTI and high anion gap metabolic acidosis. For the last 2 days patient has been having increasing weakness. There was no fever or chills. Patient having decreasing appetite. There is no current chest pain or shortness of breath. Patient is complaining of nausea. Patient is not taking his medications. Because of the symptoms, patient was brought to the ER Initial lab work done in the ER showed WBC 8.5, hemoglobin 15.8, platelet count 275, sodium 135, potassium 4.3, BUN 17, creatinine 0.80, phosphorous 3.9, magnesium 1.3, bilirubin 1.9 troponin 0.012 UA done showed moderate amount of leukocyte Estrace, urine WBC 26 EKG done in the ER showed heart rate of87 , no ST segment elevation or depression seen, no T-wave inversions seen. Patient admitted to internal medicine service REVIEW OF SYSTEMS: CONSTITUTIONAL: No fever, no malaise, no fatigue. HEENT: No recent visual problems or hearing problems. Denied any sore throat. CARDIOVASCULAR: No chest pain, orthopnea, PND, no palpitations, no syncope. PULMONARY: No shortness of breath, no cough, no hemoptysis. GASTROINTESTINAL: No diarrhea, no nausea, no vomiting, no abdominal pain. NEUROLOGICAL: No headaches, no weakness, no numbness. HEMATOLOGICAL: Denies any bleeding or petechiae. GENITOURINARY: Denies any burning micturition, frequency, or urgency. MUSCULOSKELETAL/RHEUMATOLOGICAL: Denies any joint pain, swelling, or any muscle pain. ENDOCRINE: Denies any polyuria or polydipsia. The rest of the 14-point review of systems is negative. PHYSICAL EXAMINATION: GENERAL: The patient is alert and oriented x3, not in any acute distress. Well developed, well nourished. HEENT: Pupils are round and equally reacting to light. EOMI. No scleral icterus. No conjunctival pallor. Normocephalic, atraumatic. No pharyngeal erythema. No thyromegaly. CARDIOVASCULAR: S1 and S2 present. No murmurs, rubs, or gallops. PULMONARY: Chest is clear to auscultation, no wheezing or crackles. ABDOMEN: Soft, nontender, nondistended, normoactive bowel sounds. No palpable organomegaly. MUSCULOSKELETAL: No joint swelling or deformity. EXTREMITIES: No cyanosis, clubbing, or pedal edema. NEUROLOGICAL: Gross neurological examination did not reveal any focal deficits. SKIN: No rashes. Assessment and plan Generalized weakness UTI Hypomagnesemia Anion gap metabolic acidosis Diabetes type 2 Hypertension Hyperlipidemia Monitor vital signs Monitor CBC Monitor CMP Continue telemetry monitoring Ordered urine culture Ordered CRP, ESR Ordered chest x-ray Continue IV fluids Monitor blood sugar levels, continue sliding scale insulin PT consult OT consult ID consult Labs and medication were reviewed.. Continue same treatment. Continue with symptomatic treatment. Resume home medication. Monitor labs and vitals. DVT and GI prophylaxis. Further recommendations as per clinical course of the patient Dictation was produced using [employer] dictation software. please excuse any grammatical, word or spelling errors. Past Medical History Past Medical History: Diabetes Mellitus, Hypertension Additional Past Medical History / Comment(s): cognitive delay History of Any Multi-Drug Resistant Organisms: None Reported Past Surgical History: Hysterectomy Past Psychological History: No Psychological Hx Reported Smoking Status: Never smoker Past Alcohol Use History: None Reported Past Drug Use History: None Reported Medications and Allergies Home Medications Medication Instructions Recorded Confirmed Type Atorvastatin [Lipitor] 20 mg PO DAILY 03/19/24 04/02/24 History Dulaglutide [Trulicity] 1.5 mg SQ SA 03/19/24 04/02/24 History Empagliflozin [Jardiance] 10 mg PO DAILY 03/19/24 04/02/24 History Insulin Glargine,Hum.rec.anlog 16 units SQ HS 03/19/24 04/02/24 History [Lantus Solostar Pen] Oxybutynin ER [Ditropan XL] 10 mg PO DAILY 03/19/24 04/02/24 History metFORMIN HCL 500 mg PO BID 03/19/24 04/02/24 History Acetaminophen Tab [Tylenol] 650 mg PO Q6HR PRN tab 03/22/24 04/02/24 Rx Allergies Allergy/AdvReac Type Severity Reaction Status Date / Time No Known Allergies Allergy Verified 04/02/24 11:00 Physical Exam Vitals: Vital Signs Temp Pulse Pulse Resp BP BP Pulse Ox 04/02/24 07:00 97.7 F 71 15 107/67 97 04/02/24 02:00 98.3 F 76 18 113/67 98 04/01/24 22:53 97.5 F L 85 18 169/75 99 04/01/24 22:30 97.8 F 81 16 134/59 93 L 04/01/24 21:59 98.8 F 75 14 117/60 95 04/01/24 21:19 84 16 113/75 94 L 04/01/24 20:04 98.2 F 93 16 123/77 96 Intake and Output 04/01/24 04/02/24 04/02/24 22:59 06:59 14:59 Intake Total 360 240 Balance 360 240 Intake: Oral 360 240 Other: # Voids 2 Weight 68.039 kg 68.039 kg Results CBC & Chem 7: 04/02/24 02:53 04/02/24 02:53 Labs: Abnormal Lab Results - Last 24 Hours (Table) 04/01/24 04/01/24 04/02/24 Range/Units 21:06 21:06 01:00 Hct 49.1 H (34.0-46.0) % Sodium 135 L (137-145) mmol/L Carbon Dioxide 14 L (22-30) mmol/L Magnesium 1.3 L (1.6-2.3) mg/dL Total Bilirubin 1.9 H (0.2-1.3) mg/dL Total Protein (6.3-8.2) g/dL Urine Protein Trace H (Negative) Urine Glucose (UA) 3+ H (Negative) Urine Ketones 4+ H (Negative) Ur Leukocyte Esterase Moderate H (Negative) Urine WBC 26 H (0-5) /hpf Urine Bacteria Rare H (None) /hpf Hyaline Casts 28 H (0-2) /lpf Urine Mucus Rare H (None) /hpf Urine Yeast (Budding) Rare H (None) /hpf 04/02/24 Range/Units 02:53 Hct (34.0-46.0) % Sodium (137-145) mmol/L Carbon Dioxide 17 L (22-30) mmol/L Magnesium 1.5 L (1.6-2.3) mg/dL Total Bilirubin 1.5 H (0.2-1.3) mg/dL Total Protein 6.0 L (6.3-8.2) g/dL Urine Protein (Negative) Urine Glucose (UA) (Negative) Urine Ketones (Negative) Ur Leukocyte Esterase (Negative) Urine WBC (0-5) /hpf Urine Bacteria (None) /hpf Hyaline Casts (0-2) /lpf Urine Mucus (None) /hpf Urine Yeast (Budding) (None) /hpf Thrombosis Risk Factor Assmnt - Choose All That Apply Each Factor Represents 1 point: Obesity (BMI >25) Each Risk Factor Represents 3 Points: Age 75 years or older Thrombosis Risk Factor Assessment Total Risk Factor Score: 4 Thrombosis Risk Factor Assessment Level: Moderate Risk
[2024-04-02 17:15] LABS: Glucose,Whole Blood 160 mg/dL (70-110)
[2024-04-02 20:21] LABS: Glucose,Whole Blood 132 mg/dL (70-110)
[2024-04-02] MEDS: NON FORMULARY DRUG (Dulaglutide [Trulicity] 1.5 MG/0.5 ML Each) SQ SCH (21:37)
[2024-04-02] MEDS: INSULIN DETEMIR (LEVEMIR) 100 UNIT/ML SYR SQ SCH (21:41)
[2024-04-03 03:01] LABS: Glucose,Whole Blood 70 mg/dL (70-110)
[2024-04-03 05:40] LABS: Glucose,Whole Blood 68 mg/dL (70-110)
[2024-04-03 06:00] LABS: Glucose,Whole Blood 79 mg/dL (70-110)
[2024-04-03] MEDS: OXYBUTYNIN 10 MG TAB.ER.24 PO SCH (08:40)
[2024-04-03] MEDS: DAPAGLIFLOZIN PROPANEDIOL 5 MG TABLET PO SCH (08:40)
[2024-04-03] MEDS: ATORVASTATIN 20 MG TAB PO SCH (08:40)
[2024-04-03 09:58] LABS: Basophils # (A) 0.03 X 10*3/uL (0.00-0.10); Basophils % (A) 0.5 %; Eosinophils # (A) 0.11 X 10*3/uL (0.04-0.35); Eosinophils % (A) 1.9 %; HCT 38.6 % (37.2-46.3); HGB 12.9 g/dL (12.0-15.0); Lymphocytes # (A) 2.15 X 10*3/uL (0.90-5.00); Lymphocytes % (A) 36.4 %; MCH 29.9 pg (27.0-32.0); MCHC 33.4 g/dL (32.0-37.0); MCV 89.6 FL (80.0-97.0); Monocytes # (A) 0.45 X 10*3/uL (0.20-1.00); Monocytes % (A) 7.6 %; NRBC Per 100 WBC 0 X 10*3/uL (0.00-0.01); Neutrophils # (A) 3.15 X 10*3/uL (1.80-7.70); Neutrophils % (A) 53.4 %; Platelet Count 200 X 10*3/uL (140-440); RBC 4.31 X 10*6/uL (4.10-5.20); RDW 12.9 % (11.5-14.5)
[2024-04-03 10:02] LABS: ALT 19 U/L (8-44); AST 20 U/L (13-35); Albumin 3.4 g/dL (3.8-4.9); Albumin/Globulin Ratio 1.79 Ratio (1.60-3.17); Alkaline Phosphatase 60 U/L (41-126); Blood Urea Nitrogen 7.2 mg/dL (9.0-27.0); Calcium 8.3 mg/dL (8.7-10.3); Carbon Dioxide 22.4 mmol/L (21.6-31.8); Chloride 105 mmol/L (96-109); Globulin 1.9 g/dL (1.6-3.3); Glucose 78 mg/dL (70-110); Potassium 3.6 mmol/L (3.5-5.5); Sodium 139 mmol/L (135-145); Total Bilirubin 0.9 mg/dL (0.3-1.2); Total Protein 5.3 g/dL (6.2-8.2)
--- NOTE | 2024-04-03 10:23 | P.CONS ---
History of Present Illness - Reason for Consult Consult date: 04/02/24 Recurrent urinary tract infection Requesting physician: Deni River - Chief Complaint Weakness and decreased appetite x days - History of Present Illness Patient is a 73-year-old female with a past medical history significant for diabetes mellitus hypertension cognitive delay patient has been brought into the hospital for evaluation of persistent weakness and decreased activity level patient apparently did have a recent admission to this facility from March 18 to March 22 and the patient has been treated for anion gap metabolic acidosis complicated urinary tract infection as well as there was evidence of thickening of the colon at the splenic flexure for which GI was consulted however apparently the patient did have workup at the outside facility's for no work was done and the patient was discharged patient has not been brought back to the hospital for the patient having generalized weakness has not been eating for the last few days decreased appetite has been complaining of lower abdominal pain not able to quantify it any further keeping in mind her history of cognitive abnormality not a very good historian patient on presentation to this hospital was afebrile and no fever has been ordered subsequently patient was nontachycardic hypotensive or hypoxic patient did have a white count of 8.1 creatinine 0.6 electrolytes are normal liver enzymes are normal he did have a positive UA with moderate leukocyte esterase 26 WBC serum acetone was positive patient has been admitted to the hospital started on ceftriaxone infectious disease was consulted for the management of antibiotic therapy consulted for recurrent UTI Review of Systems Positive point and negatives has been mentioned in the HPI, complete review of systems was performed and all other systems are negative Past Medical History Past Medical History: Diabetes Mellitus, Hypertension Additional Past Medical History / Comment(s): cognitive delay History of Any Multi-Drug Resistant Organisms: None Reported Past Surgical History: Hysterectomy Past Psychological History: No Psychological Hx Reported Smoking Status: Never smoker Past Alcohol Use History: None Reported Past Drug Use History: None Reported Medications and Allergies Home Medications Medication Instructions Recorded Confirmed Type Atorvastatin [Lipitor] 20 mg PO DAILY 03/19/24 04/02/24 History Insulin Glargine,Hum.rec.anlog 16 units SQ HS 03/19/24 04/02/24 History [Lantus Solostar Pen] Oxybutynin ER [Ditropan XL] 10 mg PO DAILY 03/19/24 04/02/24 History metFORMIN HCL 500 mg PO BID 03/19/24 04/02/24 History Acetaminophen Tab [Tylenol] 650 mg PO Q6HR PRN tab 03/22/24 04/02/24 Rx cefUROXime axetiL [Ceftin] 500 mg PO BID 3 Days #6 tab 04/04/24 Rx Allergies Allergy/AdvReac Type Severity Reaction Status Date / Time No Known Allergies Allergy Verified 04/02/24 11:00 Physical Exam Vitals: Vital Signs Temp Pulse Pulse Resp BP BP Pulse Ox 04/02/24 07:00 97.7 F 71 15 107/67 97 04/02/24 02:00 98.3 F 76 18 113/67 98 04/01/24 22:53 97.5 F L 85 18 169/75 99 04/01/24 22:30 97.8 F 81 16 134/59 93 L 04/01/24 21:59 98.8 F 75 14 117/60 95 04/01/24 21:19 84 16 113/75 94 L 04/01/24 20:04 98.2 F 93 16 123/77 96 Intake and Output 04/01/24 04/02/24 04/02/24 22:59 06:59 14:59 Intake Total 360 240 Balance 360 240 Intake: Oral 360 240 Other: # Voids 2 Weight 68.039 kg 68.039 kg GENERAL DESCRIPTION: Elderly female lying in bed, no distress. No tachypnea or accessory muscle of respiration use. HEENT: Shows Pallor , no scleral icterus. Oral mucous membrane is dry. No pharyngeal erythema or thrush NECK: Trachea central, no thyromegaly. LUNGS: Unlabored breathing. Clear to auscultation anteriorly. No wheeze or crackle. HEART: S1, S2, regular rate and rhythm. No loud murmur ABDOMEN: Soft, mild suprapubic tenderness , no guarding or rigidity EXTREMITIES: No edema of feet. SKIN: No rash, no masses palpable. NEUROLOGICAL: The patient is awake, alert, oriented x3, mood and affect normal. Results CBC & Chem 7: 04/03/24 02:43 04/04/24 10:36 Labs: Abnormal Lab Results - Last 24 Hours (Table) 04/01/24 04/01/24 04/02/24 Range/Units 21:06 21:06 01:00 Hct 49.1 H (34.0-46.0) % Sodium 135 L (137-145) mmol/L Carbon Dioxide 14 L (22-30) mmol/L Magnesium 1.3 L (1.6-2.3) mg/dL Total Bilirubin 1.9 H (0.2-1.3) mg/dL Total Protein (6.3-8.2) g/dL Urine Protein Trace H (Negative) Urine Glucose (UA) 3+ H (Negative) Urine Ketones 4+ H (Negative) Ur Leukocyte Esterase Moderate H (Negative) Urine WBC 26 H (0-5) /hpf Urine Bacteria Rare H (None) /hpf Hyaline Casts 28 H (0-2) /lpf Urine Mucus Rare H (None) /hpf Urine Yeast (Budding) Rare H (None) /hpf 04/02/24 Range/Units 02:53 Hct (34.0-46.0) % Sodium (137-145) mmol/L Carbon Dioxide 17 L (22-30) mmol/L Magnesium 1.5 L (1.6-2.3) mg/dL Total Bilirubin 1.5 H (0.2-1.3) mg/dL Total Protein 6.0 L (6.3-8.2) g/dL Urine Protein (Negative) Urine Glucose (UA) (Negative) Urine Ketones (Negative) Ur Leukocyte Esterase (Negative) Urine WBC (0-5) /hpf Urine Bacteria (None) /hpf Hyaline Casts (0-2) /lpf Urine Mucus (None) /hpf Urine Yeast (Budding) (None) /hpf Assessment and Plan (1) UTI (urinary tract infection) Status: Acute Code(s): N39.0 - URINARY TRACT INFECTION, SITE NOT SPECIFIED SNOMED Code(s): 45649985 Plan: 1patient presented to hospital with decreased appetite nausea and some some lower abdominal discomfort did have significantly positive UA and suprapubic tenderness concerning for possible cystitis clinically not behaving as pyelonephritis deep infection. 2patient to continue with Rocephin 1 g daily while waiting for the culture to finalize. We will follow on clinical condition and cultures to further adjust medication if needed Thank you for this consultation we will follow the patient along with you Dictation was produced using [employer] dictation software. please excuse any grammatical, word or spelling errors. Time with Patient: Greater than 30
[2024-04-03 12:12] LABS: Glucose,Whole Blood 111 mg/dL (70-110)
--- NOTE | 2024-04-03 14:35 | P.PN ---
Subjective Progress Note Date: 04/03/24 patient is a 73-year-old lady with past medical history significant for Hyperlipidemia, insulin-dependent diabetes mellitus, presented the ER for generalized weakness. Patient family stated that the patient has not been eating for the last few days. Patient was initially admitted in the beginning of the month with similar complaints at which time patient was found to be UTI and high anion gap metabolic acidosis. For the last 2 days patient has been having increasing weakness. There was no fever or chills. Patient having decreasing appetite. There is no current chest pain or shortness of breath. Patient is complaining of nausea. Patient is not taking his medications. Because of the symptoms, patient was brought to the ER Initial lab work done in the ER showed WBC 8.5, hemoglobin 15.8, platelet count 275, sodium 135, potassium 4.3, BUN 17, creatinine 0.80, phosphorous 3.9, magnesium 1.3, bilirubin 1.9 troponin 0.012 UA done showed moderate amount of leukocyte Estrace, urine WBC 26 EKG done in the ER showed heart rate of87 , no ST segment elevation or depression seen, no T-wave inversions seen. Patient admitted to internal medicine service 04/03. Patient seen and examined with blood work done this morning showed WBC 5.9, hemoglobin 12.9, platelet count 200, sodium 139, potassium 3.6, BUN 7.2, creatinine 0.6, anion gap 11.6, blood glucose 70 REVIEW OF SYSTEMS: CONSTITUTIONAL: No fever, no malaise,. CARDIOVASCULAR: No chest pain, no palpitations, no syncope. PULMONARY: No shortness of breath, no cough, GASTROINTESTINAL: No diarrhea, no nausea, no vomiting, no abdominal pain. NEUROLOGICAL: No headaches, no weakness, PHYSICAL EXAMINATION: GENERAL: The patient is alert and oriented x3, not in any acute distress. Well developed, well nourished. HEENT: Pupils are round and equally reacting to light. EOMI. No scleral icterus. No conjunctival pallor. Normocephalic, atraumatic. No pharyngeal erythema. No thyromegaly. CARDIOVASCULAR: S1 and S2 present. No murmurs, rubs, or gallops. PULMONARY: Chest is clear to auscultation, no wheezing or crackles. ABDOMEN: Soft, nontender, nondistended, normoactive bowel sounds. No palpable organomegaly. MUSCULOSKELETAL: No joint swelling or deformity. EXTREMITIES: No cyanosis, clubbing, or pedal edema. NEUROLOGICAL: Gross neurological examination did not reveal any focal deficits. SKIN: No rashes. Assessment and plan Generalized weakness UTI Hypomagnesemia Anion gap metabolic acidosis Euglycemic DKA Diabetes type 2 Hypertension Hyperlipidemia Monitor vital signs Monitor CBC Monitor CMP Continue telemetry monitoring Follow-up on urine culture Continue IV fluids Monitor blood sugar levels, continue sliding scale insulin, change Levemir to 8 units twice a day Will DC [place] going forward as it could be contributing to patient presentation of euglycemic DKA PT OT following ID consult Labs and medication were reviewed.. Continue same treatment. Continue with symptomatic treatment. Resume home medication. Monitor labs and vitals. DVT and GI prophylaxis. Further recommendations as per clinical course of the patient Dictation was produced using [employer] dictation software. please excuse any grammatical, word or spelling errors. Objective - Vital Signs Vital signs: Vital Signs Temp 98.2 F 04/03/24 07:15 Pulse 60 04/03/24 07:15 Resp 18 04/03/24 07:15 BP 131/75 04/03/24 07:15 Pulse Ox 93 L 04/03/24 07:15 FiO2 Intake & Output 04/02/24 04/03/24 04/03/24 18:59 06:59 18:59 Intake Total 240 200 Balance 240 200 Intake: Oral 240 200 Other: # Voids 1 2 1 # Bowel Movements 1 - Labs CBC & Chem 7: 04/03/24 02:43 04/03/24 02:43 Labs: Abnormal Lab Results - Last 24 Hours (Table) 04/02/24 04/02/24 04/03/24 Range/Units 17:13 20:19 02:43 MPV (9.5-12.2) FL BUN (9.0-27.0) mg/dL POC Glucose (mg/dL) 160 H 132 H (70-110) mg/dL Hemoglobin A1c 7.0 H (<=6.0) % Calcium (8.7-10.3) mg/dL Total Protein (6.2-8.2) g/dL Albumin (3.8-4.9) g/dL 04/03/24 04/03/24 04/03/24 Range/Units 02:43 02:43 05:36 MPV 9.0 L (9.5-12.2) FL BUN 7.2 L (9.0-27.0) mg/dL POC Glucose (mg/dL) 68 L (70-110) mg/dL Hemoglobin A1c (<=6.0) % Calcium 8.3 L (8.7-10.3) mg/dL Total Protein 5.3 L (6.2-8.2) g/dL Albumin 3.4 L (3.8-4.9) g/dL
[2024-04-03 17:12] LABS: Glucose,Whole Blood 135 mg/dL (70-110)
[2024-04-03 21:02] LABS: Glucose,Whole Blood 135 mg/dL (70-110)
[2024-04-03] MEDS: INSULIN DETEMIR (LEVEMIR) 100 UNIT/ML SYR SQ SCH (21:34)
[2024-04-03] MEDS: ACETAMINOPHEN TAB 325 MG TAB PO PRN (21:41)
[2024-04-04 05:38] LABS: Glucose,Whole Blood 89 mg/dL (70-110)
[2024-04-04 08:16] VITALS: RESP 16
[2024-04-04 11:00] LABS: ALT 21 U/L (4-34); AST 27 U/L (14-36); African American GFR (CKD) >90 (>60 ml/min/1.73 sqM); Albumin 3.5 g/dL (3.5-5.0); Albumin/Globulin Ratio 1.4; Alkaline Phosphatase 66 U/L (38-126); Anion Gap 5 mmol/L; Blood Urea Nitrogen 4 mg/dL (7-17); Calcium 8.8 mg/dL (8.4-10.2); Carbon Dioxide 23 mmol/L (22-30); Chloride 111 mmol/L (98-107); Globulin 2.5 g/dL; Glucose 183 mg/dL (74-99); Non-African American GFR(CKD) 87 (>60 ml/min/1.73 sqM); Sodium 139 mmol/L (137-145); Total Bilirubin 1.3 mg/dL (0.2-1.3)
[2024-04-04 12:07] LABS: Glucose,Whole Blood 189 mg/dL (70-110)
--- NOTE | 2024-04-04 14:10 | P.DS ---
Providers Date of admission: 04/04/24 07:49 Expected date of discharge: 04/04/24 Attending physician: Jeni Jimenez Consults: 04/02/24 09:34 Consult Physician Routine Consulting Provider: Pamela English Consult Reason/Comments: Complicated recurrent UTI Do you want consulting provider notified?: Yes Primary care physician: Isak Narvaez [facility] Course: Discharge diagnoses; Generalized weakness UTI Hypomagnesemia Anion gap metabolic acidosis Euglycemic DKA Diabetes type 2 Hypertension Hyperlipidemia Hospital course; patient is a 73-year-old lady with past medical history significant for Hyperlipidemia, insulin-dependent diabetes mellitus, presented the ER for generalized weakness. Patient family stated that the patient has not been eating for the last few days. Patient was initially admitted in the beginning of the month with similar complaints at which time patient was found to be UTI and high anion gap metabolic acidosis. For the last 2 days patient has been having increasing weakness. There was no fever or chills. Patient having decreasing appetite. There is no current chest pain or shortness of breath. Patient is complaining of nausea. Patient is not taking his medications. Because of the symptoms, patient was brought to the ER Initial lab work done in the ER showed WBC 8.5, hemoglobin 15.8, platelet count 275, sodium 135, potassium 4.3, BUN 17, creatinine 0.80, phosphorous 3.9, magnesium 1.3, bilirubin 1.9 troponin 0.012 UA done showed moderate amount of leukocyte Estrace, urine WBC 26 EKG done in the ER showed heart rate of87 , no ST segment elevation or depression seen, no T-wave inversions seen. Patient admitted to internal medicine service 04/03. Patient seen and examined with blood work done this morning showed WBC 5.9, hemoglobin 12.9, platelet count 200, sodium 139, potassium 3.6, BUN 7.2, creatinine 0.6, anion gap 11.6, blood glucose 70 04/04. Patient seen and examined. PT and OT evaluated, recommended patient be discharged home. Being discharged on oral Ceftin for 3 days. Patient Trulicity and Jardiance has been discontinued, could be contributing to patient's symptoms of euglycemic DKA. Outpatient follow with PCP PHYSICAL EXAMINATION: GENERAL: The patient is alert and oriented x3, not in any acute distress. Well developed, well nourished. HEENT: Pupils are round and equally reacting to light. EOMI. No scleral icterus. No conjunctival pallor. Normocephalic, atraumatic. No pharyngeal erythema. No thyromegaly. CARDIOVASCULAR: S1 and S2 present. No murmurs, rubs, or gallops. PULMONARY: Chest is clear to auscultation, no wheezing or crackles. ABDOMEN: Soft, nontender, nondistended, normoactive bowel sounds. No palpable organomegaly. MUSCULOSKELETAL: No joint swelling or deformity. EXTREMITIES: No cyanosis, clubbing, or pedal edema. NEUROLOGICAL: Gross neurological examination did not reveal any focal deficits. SKIN: No rashes. Dictation was produced using [email or web address] dictation software. please excuse any grammatical, word or spelling errors. Patient Condition at Discharge: Fair Plan - Discharge Summary Discharge Rx Participant: No New Discharge Prescriptions: New cefUROXime axetiL [Ceftin] 500 mg PO BID 3 Days #6 tab Continue Acetaminophen Tab [Tylenol] 650 mg PO Q6HR PRN tab PRN Reason: Fever And/ Or Pain Atorvastatin [Lipitor] 20 mg PO DAILY Oxybutynin ER [Ditropan XL] 10 mg PO DAILY Insulin Glargine,Hum.rec.anlog [Lantus Solostar Pen] 16 units SQ HS metFORMIN HCL 500 mg PO BID Discontinued Empagliflozin [Jardiance] 10 mg PO DAILY Dulaglutide [Trulicity] 1.5 mg SQ SA Discharge Medication List Atorvastatin [Lipitor] 20 mg PO DAILY 03/19/24 [History] Insulin Glargine,Hum.rec.anlog [Lantus Solostar Pen] 16 units SQ HS 03/19/24 [History] Oxybutynin ER [Ditropan XL] 10 mg PO DAILY 03/19/24 [History] metFORMIN HCL 500 mg PO BID 03/19/24 [History] Acetaminophen Tab [Tylenol] 650 mg PO Q6HR PRN tab 03/22/24 [Rx] cefUROXime axetiL [Ceftin] 500 mg PO BID 3 Days #6 tab 04/04/24 [Rx] Follow up Appointment(s)/Referral(s): Isak Narvaez MD [Primary Care Provider] - 1-2 days
[2024-04-04 15:34] VITALS: BP 102/55; PULSE 63; TEMP 98.3
[2024-04-04 17:01] LABS: Glucose,Whole Blood 170 mg/dL (70-110)
--- NOTE | 2024-04-05 13:10 | P.PN ---
Subjective Progress Note Date: 04/03/24 Principal diagnosis: Reason for follow-up visit urinary tract infection Patient is a 73-year-old female with a past medical history significant for diabetes mellitus hypertension cognitive delay patient has been brought into the hospital for evaluation of persistent weakness and decreased activity level, patient have some lower abdominal pain positive UA concerning f or UTI. On today's evaluation that is 04/03/2024, patient has been afebrile, patient is breathing comfortably and is currently on room air, patient denies having any significant cough no chest pain shortness of breath, patient denies nausea vomiting or diarrhea still some lower abdominal pain but no worsening. Patient did have a white count of 5.90, creatinine 0.6 Objective - Vital Signs Vital signs: Vital Signs Temp 98.4 F 04/03/24 13:45 Pulse 64 04/03/24 13:45 Resp 17 04/03/24 13:45 BP 110/72 04/03/24 13:45 Pulse Ox 93 L 04/03/24 13:45 FiO2 Intake & Output 04/02/24 04/03/24 04/03/24 18:59 06:59 18:59 Intake Total 240 400 Balance 240 400 Intake: Oral 240 400 Other: # Voids 1 2 3 # Bowel Movements 2 - Exam GENERAL DESCRIPTION: An elderly female lying in bed in no distress RESPIRATORY SYSTEM: Unlabored breathing , decreased breath sounds at bases HEART: S1 S2 regular rate and rhythm , ABDOMEN: Soft , no tenderness EXTREMITIES: No edema feet - Labs CBC & Chem 7: 04/03/24 02:43 04/04/24 10:36 Labs: Abnormal Lab Results - Last 24 Hours (Table) 04/02/24 04/02/24 04/03/24 Range/Units 17:13 20:19 02:43 MPV (9.5-12.2) FL BUN (9.0-27.0) mg/dL POC Glucose (mg/dL) 160 H 132 H (70-110) mg/dL Hemoglobin A1c 7.0 H (<=6.0) % Calcium (8.7-10.3) mg/dL Total Protein (6.2-8.2) g/dL Albumin (3.8-4.9) g/dL 04/03/24 04/03/24 04/03/24 Range/Units 02:43 02:43 05:36 MPV 9.0 L (9.5-12.2) FL BUN 7.2 L (9.0-27.0) mg/dL POC Glucose (mg/dL) 68 L (70-110) mg/dL Hemoglobin A1c (<=6.0) % Calcium 8.3 L (8.7-10.3) mg/dL Total Protein 5.3 L (6.2-8.2) g/dL Albumin 3.4 L (3.8-4.9) g/dL 04/03/24 Range/Units 12:10 MPV (9.5-12.2) FL BUN (9.0-27.0) mg/dL POC Glucose (mg/dL) 111 H (70-110) mg/dL Hemoglobin A1c (<=6.0) % Calcium (8.7-10.3) mg/dL Total Protein (6.2-8.2) g/dL Albumin (3.8-4.9) g/dL Assessment and Plan (1) UTI (urinary tract infection) Status: Acute Code(s): N39.0 - URINARY TRACT INFECTION, SITE NOT SPECIFIED SNOMED Code(s): 72534651 Plan: 1patient presented to hospital with decreased appetite nausea and some some lower abdominal discomfort did have significantly positive UA and suprapubic tenderness concerning for possible cystitis clinically not behaving as pyelonephritis deep infection. 2patient seem to have shown some clinical improvement and will continue with Rocephin 1 g daily while waiting for the culture to finalize. Dictation was produced using [employer] dictation software. please excuse any grammatical, word or spelling errors. Time with Patient: Less than 30
--- NOTE | 2024-04-05 13:11 | P.PN ---
Subjective Progress Note Date: 04/04/24 Principal diagnosis: Reason for follow-up visit urinary tract infection Patient is a 73-year-old female with a past medical history significant for diabetes mellitus hypertension cognitive delay patient has been brought into the hospital for evaluation of persistent weakness and decreased activity level, patient have some lower abdominal pain positive UA concerning f or UTI. On today's evaluation that is 04/04/2024, Patient is afebrile this morning patient denies having any chest pain shortness of breath or cough, the patient is breathing comfortably on room air, patient did have improvement in abdominal pain no nausea vomiting or diarrhea. Patient did have a creatinine 0.65 urine culture have been negative Objective - Vital Signs Vital signs: Vital Signs Temp 98.4 F 04/04/24 07:00 Pulse 56 L 04/04/24 07:00 Resp 16 04/04/24 07:00 BP 128/84 04/04/24 07:00 Pulse Ox 95 04/04/24 07:00 FiO2 Intake & Output 04/03/24 04/04/24 04/04/24 18:59 06:59 18:59 Intake Total 518 Balance 518 Intake: Oral 518 Other: Voiding Method Toilet # Voids 3 1 # Bowel Movements 2 - Exam GENERAL DESCRIPTION: An elderly female lying in bed in no distress RESPIRATORY SYSTEM: Unlabored breathing , decreased breath sounds at bases HEART: S1 S2 regular rate and rhythm , ABDOMEN: Soft , no tenderness EXTREMITIES: No edema feet - Labs CBC & Chem 7: 04/03/24 02:43 04/04/24 10:36 Labs: Abnormal Lab Results - Last 24 Hours (Table) 04/03/24 04/03/24 04/04/24 Range/Units 17:11 21:01 10:36 Chloride 111 H (98-107) mmol/L BUN 4 L (7-17) mg/dL Glucose 183 H (74-99) mg/dL POC Glucose (mg/dL) 135 H 135 H (70-110) mg/dL Total Protein 6.0 L (6.3-8.2) g/dL 04/04/24 Range/Units 12:04 Chloride (98-107) mmol/L BUN (7-17) mg/dL Glucose (74-99) mg/dL POC Glucose (mg/dL) 189 H (70-110) mg/dL Total Protein (6.3-8.2) g/dL Microbiology - Last 24 Hours (Table) 04/02/24 09:18 Urine Culture - Final Urine,Voided Assessment and Plan (1) UTI (urinary tract infection) Status: Acute Code(s): N39.0 - URINARY TRACT INFECTION, SITE NOT SPECIFIED SNOMED Code(s): 48479086 Plan: 1patient presented to hospital with decreased appetite nausea and some some lower abdominal discomfort did have significantly positive UA and suprapubic tenderness concerning for possible cystitis clinically not behaving as pyelonephritis deep infection. 2patient seem to have shown some clinical improvement and blood culture negative has received about 3 days of Rocephin should be enough for cystitis Dictation was produced using [employer] dictation software. please excuse any grammatical, word or spelling errors. Time with Patient: Less than 30
== END 2024-04-04 18:38 | disposition home or self-care (01) | DRG 689 ==
LOC: EC 19:50 → 6NMEDSUR 21:53 → OBSVTOIN 04-04 07:49
PROVIDERS: ADMIT Hospitalist; ATTEND Hospitalist
DX: N39.0 Urinary tract infection, site not specified (principal); E11.10 Type 2 diabetes mellitus with ketoacidosis without coma; I10 Essential (primary) hypertension; Z79.4 Long term (current) use of insulin; E78.5 Hyperlipidemia, unspecified; E83.42 Hypomagnesemia; E86.0 Dehydration; Z79.84 Long term (current) use of oral hypoglycemic drugs; Z79.85 Long-term (current) use of injectable non-insulin antidiabetic drugs; Z79.899 Other long term (current) drug therapy; Z87.440 Personal history of urinary (tract) infections; Z90.710 Acquired absence of both cervix and uterus
CPT/HCPCS: 36415; 71046; 80053; 81001; 82009; 83036; 83605; 83735; 84100; 84443; 84484; 85025; 85610; 85652; 85730; 86140; 87086; 93005; 96361; 96374; 99285